=== PATIENT | male | born 1965 | race Caucasian/White ===

== ENCOUNTER 2019-12-10 13:57 | Inpatient (IN) | payer BC, SELFPAY ==
[2019-12-10] VITALS (12 sets, daily range): BP systolic 96–141; BP diastolic 61–88; PULSE 20–127; RESP 14–118; TEMP 36.5–39.6; O2SAT 93–97; BMI 36.0
--- NOTE | 2019-12-10 14:26 | XRR_ITS ---
PROCEDURE INFORMATION: Exam: XR Chest, 1 View Exam date and time: 12/10/2019 2:28 PM Age: 54 years old Clinical indication: Dyspnea; Additional info: AMS TECHNIQUE: Imaging protocol: XR of the chest Views: 1 view. COMPARISON: CR Chest 1 [place] [id number] 04/10/2014 9:56 AM FINDINGS: Lungs: Unremarkable. No consolidation. Pleural space: Unremarkable. No pleural effusion. No pneumothorax. Heart/Mediastinum: Unremarkable. No cardiomegaly. Bones/joints: No acute abnormality. There is some increased density and mild deformity of the anterior aspect of the left 5th through 7th ribs compatible with probable old rib fractures. XR/XR chest 1V portable [id number] IMPRESSION: No acute findings.
--- NOTE | 2019-12-10 14:27 | ECG_ITS ---
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 Measurements Intervals Gideon Rate: 126 P: 65 MS: 150 QRS: 86 QRSD: 102 T: 70 QT: 312 QTc: 453 Interpretive Statements SINUS TACHYCARDIA ABNORMAL RHYTHM ECG Compared to ECG 04/10/2014 09:38:32 T-wave abnormality no longer present Electronically Signed On 12-10-2019 16:21:45 CDT by Delmis Fairchild M.D. [id number]
--- NOTE | 2019-12-10 14:40 | CTR_ITS ---
PROCEDURE INFORMATION: Exam: CT Head Without Contrast Exam date and time: 12/10/2019 3:30 PM Age: 54 years old Clinical indication: Altered mental status/memory loss; Additional info: AMS, fever TECHNIQUE: Imaging protocol: Computed tomography of the head without contrast. Radiation optimization: All CT scans at this facility use at least one of these dose optimization techniques: automated exposure control; mA and/or kV adjustment per patient size (includes targeted exams where dose is matched to clinical indication); or iterative reconstruction. COMPARISON: CT head wo con* [id number] 04/10/2014 10:12 AM RADIATION DOSE METRICS: Total DLP (mGy-cm): 1632.97 FINDINGS: Brain: Normal. No hemorrhage. Unremarkable white matter. No mass effect. Ventricles: Normal. No ventriculomegaly. Bones/joints: Unremarkable. No acute fracture. Sinuses: Visualized sinuses are unremarkable. No fluid levels. Mastoid air cells: Visualized mastoid air cells are well aerated. Soft tissues: Unremarkable. CT/CT head wo con* [id number] IMPRESSION: No acute intracranial abnormality. Radiation Dose CTDIVOL = (mGy): DLP = 1632.97 (mGy-cm)
[2019-12-10 14:57] LABS: Basophils # 0.1 10^3/uL (0.0-0.1); Basophils % 0.4 %; Eosinophils # 0.1 10^3/uL (0.0-0.8); Eosinophils % 0.5 %; Hematocrit 45.7 % (42.0-52.0); Hemoglobin 15.6 g/dL (11.7-16.6); Lymphocytes % 6.8 %; Mean Corpuscular HGB Conc 34.1 g/dL (30.0-36.0); Mean Corpuscular Hemoglobin 30.9 pg (28.0-34.0); Mean Corpuscular Volume 90.5 fL (80-94); Mean Platelet Volume 11.8 fL (7.4-10.4); Monocytes # 1.2 10^3/uL (0.2-0.9); Monocytes % 8.1 %; Neutrophils # 12.59 10^3/uL (1.8-7.7); Neutrophils % 83.3 %; Nucleated Red Blood Cells % 0 %; Platelet Count 161 10^3/cmm (130-400); Red Blood Count 5.05 10^6/uL (4.1-5.3); Red Cell Distribution Width 11.7 % (12.1-15.1); White Blood Count 15.1 10^3/uL (4.0-10.0)
[2019-12-10 15:00] LABS: INR 0.91 (0.8-1.2)
[2019-12-10 15:01] LABS: Fibrinogen 439 mg/dL (174-498)
[2019-12-10 15:04] LABS: D Dimer 0.43 ug/mIFEU (0-0.59)
[2019-12-10] MEDS: lactated ringers 1,000 ML 150 ML IV ×2 (15:09→22:56)
[2019-12-10 15:10] LABS: Lactic Sepsis W/Reflex 2.6 mmol/L (0.5-2.2)
[2019-12-10 15:14] LABS: Troponin(5th) Baseline 16 ng/L (0-15)
--- NOTE | 2019-12-10 15:20 | W.ED.WEAKNES ---
HPI - Weakness General: Chief complaint: Weakness Stated complaint: MUSCLE, WEAKNESS, Time Seen by Provider: 12/10/19 14:26 History of Present Illness: HPI Narrative: This patient is a 54-year-old male presenting today with not feeling well, confusion. He is generally very active and fairly healthy person and was out riding his motorcycle today. He left home and was riding for a short time when he started feeling disoriented and having trouble holding onto the motorcycle. He had gotten to [place] and decided to turn around and come back to [place]. He is describing chills and in spite of it being warm out had to bundle up. He denies cough or shortness of breath. He denies nausea, vomiting, diarrhea. His friend who brought him in and says that he was very confused and seemed almost to be hallucinating. The patient wanted to go home and go to bed but his friend thought he needed to come in and get checked because he was acting so strangely. The patient does have a history of diabetes and neuropathy. He has chronic pain. He has not had any recent changes in any of his medications. He was in his normal state of health this morning when they left to go on the motorcycle ride. He did complain of some joint aching but said he worked hard yesterday and thought that might be why. On arrival he is tachycardic with a low-grade temp of 100.7. Sats are 95% on room air. He has no known exposure to COVID. Associated symptoms: Reports confusion; Denies chest pain, chills, easy bruising, fever(s), headache(s), nausea or vomiting Review of Systems General: Reports: 10 or more systems reviewed and unremarkable except in HPI and below Const: Denies: fever(s), chills, fatigue or malaise Eyes: Denies: change in vision ENMT: Denies: odynophagia Card: Denies: chest pain or swelling of feet/ankles Resp: Denies: dyspnea, productive cough or non-productive cough GI: Denies: abdominal pain, nausea or vomiting : Denies: flank pain Musc: Reports: joint pain; Denies: neck pain or back pain Skin/Breast: Denies: rash Neuro: Reports: weakness in extremities, lack of coordination, difficulty walking and confusion; Denies: headache(s) or numbness in extremities César/Lymph: Denies: easy bruising or easy bleeding PFS ED PFSH: Medical History (Updated 12/10/19 @ 22:32 by Sapphire Correa MD) Allergic rhinitis Chronic pain Chronic sinusitis Diabetes Dyslipidemia HTN (hypertension) Morbid obesity Neuropathy Obstructive sleep apnea Restless leg syndrome TIA (transient ischemic attack) Social History (Updated 12/10/19 @ 21:05 by Sapphire Correa MD) Smoking and tobacco status: former smoker Quit status (tobacco): has quit using tobacco Year quit tobacco: 2018 Alcohol intake: former Year of sobriety/quit date alcohol: 2014 Substance/Drug Use: never Lives independently: Yes Current occupational status: employed Physical Exam Const: COMMON NORMALS: no acute distress, no limitations and alert GENERAL APPEARANCE: cooperative HENMT: HEAD & SCALP: normal to inspection FACE & SINUS: normal facial exam Eye: GENERAL EYE: appearance normal, both eyes and all related structures Neck/C-Spine: COMMON NORMALS: supple, no meningeal signs and no JVD Chest: COMMONS NORMALS: normal inspection of the chest Resp: COMMON NORMALS: normal respiratory effort, No use of accessory muscles and clear to auscultation bilaterally AUSCULTATION: clear to auscultation bilaterally Cardio: COMMON NORMALS: no JVD, regular rate, regular rhythm and No murmurs present (Cardio) RATE: regular rate RHYTHM: regular rhythm GI: COMMON NORMALS: Normal to inspection, nondistended, normoactive bowel sounds present, Soft to palpation and non-tender INSPECTION: Yes normal to inspection AUSCULTATION: Yes normoactive bowel sounds PALPATION: Yes Soft to palpation Back/Pelvis: COMMON NORMALS: thoracic and lumbar spine normal to inspection Extremity: COMMON NORMALS: normal to inspection Neuro: COMMON NORMALS: moves all extremities, no focal motor deficits and no sensory deficits noted SENSORIUM/ORIENTATION: Yes alert MENINGEAL SIGNS: Yes no meningeal signs Psych: COMMON NORMALS: mental status grossly normal and cooperative Skin: COMMON NORMALS: no rashes or lesions noted and turgor normal GENERAL SKIN EXAM: no rashes or lesions noted and turgor normal Procedures Lumbar Puncture Time Out Performed: Yes Patient Position: upright Skin Prep: Povidone-Iodine 1% Local Anesthetic: lidocaine 1% Spinal Needle Gauge: 20G Interspace Used: L3-L4 Fluid Initially Obtained: other (I was unable to get fluid) Complications: Need to have other Practitioner Attempt Course ED course: This patient presented tachycardic and febrile. He was altered and confused initially but his mental status did improve throughout his stay. His oxygen was okay. He has not had cough or any type of COVID symptoms. The onset of this was fairly acute. He has had no sick contacts that he knows of. His presentation is concerning for meningitis or encephalitis. For this reason an LP was done. I was not able to do it in the department and it was done under fluoroscopy by Dr. Moe. The fluid came back with a cell count of only 3 white cells which were 100% mono sites. Protein and glucose were elevated. Gram stain only showed a few white cells. Covered him with 2 g Rocephin, vancomycin, acyclovir, fluconazole. He will be admitted to the hospitalist for further management and we will continue to treat presumptively as meningitis or encephalitis. COVID rapid test was negative. Vital Signs: Vital signs: Vital Signs Temperature 99.1 F 12/10/19 22:08 Pulse Rate 106 H 12/10/19 22:07 Respiratory Rate 16 12/10/19 22:07 Blood Pressure 97/68 12/10/19 22:07 Pulse Oximetry 94 12/10/19 22:07 MDM - Weakness Lab Data: Labs: Lab Results 12/10/19 12/10/19 12/10/19 Range/Units 14:41 14:41 14:41 WBC 15.1 H (4.0-10.0) 10^3/ uL RBC 5.05 (4.1-5.3) 10^6/u L Hgb 15.6 (11.7-16.6) g/dL Hct 45.7 (42.0-52.0) % MCV 90.5 (80-94) fL MCH 30.9 (28.0-34.0) pg MCHC 34.1 (30.0-36.0) g/dL RDW 11.7 L (12.1-15.1) % Plt Count 161 (130-400) 10^3/c mm MPV 11.8 H (7.4-10.4) fL Neut % (Auto) 83.3 % Lymph % (Auto) 6.8 % [place] % (Auto) 8.1 % Eos % (Auto) 0.5 % Baso % (Auto) 0.4 % Neut # (Auto) 12.59 H (1.8-7.7) 10^3/u L Lymph # (Auto) 1.0 (0.8-4.8) 10^3/u L [place] # (Auto) 1.2 H (0.2-0.9) 10^3/u L Eos # (Auto) 0.1 (0.0-0.8) 10^3/u L Baso # (Auto) 0.1 (0.0-0.1) 10^3/u L Nucleated RBC % (a uto) 0 % Nucleated RBCs # 0.0 /100WBC PT (12.1-14.9) SECO NDS INR (0.8-1.2) Fibrinogen (174-498) mg/dL D-Dimer (0-0.59) ug/mIFE U Sodium 130 L (136-145) mmol/L Potassium 4.0 (3.5-5.1) mmol/L Chloride 92 L (98-107) mmol/L Carbon Dioxide 24 (22-29) mmol/L Anion Gap 18.0 (5-19) BUN 19 (6-20) mg/dL Creatinine 1.2 (0.7-1.2) mg/dL GFR Calculation 63.3 L (90-130) mL/min Glucose 236 H (65-115) mg/dL Calculated Osmolal ity 274 L (285-295) mOsm/k g Lactic Acid 2.6 H (0.5-2.2) mmol/L Lactic Acid (Sepsi s) (0.5-2.2) mmol/L Calcium 9.0 (8.5-10.5) mg/dL Ferritin 264 (30-400) ng/mL Total Bilirubin 0.6 (0.15-1.2) mg/dL AST 31 (0-40) U/L ALT 44 H (0-41) U/L Alkaline Phosphata se 87 (40-130) IU/L Creatine Kinase 238 (39-308) U/L Troponin T Baselin e (0-15) ng/L Troponin T 120 Min [place] (0-15) ng/L Delta Troponin T (0-10) ABS# C-Reactive Protein 29.5 H (0.0-4.9) mg/L NT-Pro-B Natriuret Pep 64 (0-125) pg/mL Total Protein 7.2 (6.6-8.7) g/dL Albumin 4.5 (3.5-5.2) g/dL Globulin 2.7 (1.3-4.6) g/dL Procalcitonin 1.29 H (0-0.5) ng/mL CSF Appearance (CLEAR) CSF Color (COLORLESS) CSF WBC (0-5) /uL CSF RBC (0-0) 10^3/uL CSF Mononuclear # Auto (50-90) 10^3/uL CSF Mononuclear WB Cs % (50-90) % CSF Polynuclear WB Cs # (0-10) 10^3/uL CSF Polynuclear WB Cs % (0-10) % CSF Diff Comment CSF Glucose (40-70) mg/dL CSF Total Protein (15-45) mg/dL Urine Opiates Scre en (Negative) ng/mL Ur Barbiturates Sc reen (Negative) ng/mL Ur Phencyclidine S crn (Negative) ng/mL Ur Amphetamines Sc reen (Negative) ng/mL U Benzodiazepines Scrn (Negative) ng/mL Urine Cocaine Scre en (Negative) ng/mL U Marijuana (THC) Screen (Negative) ng/mL Ethyl Alcohol < 10 (0-10) mg/dL HIV 1&2 Ab & HIV 1 Ag (Non-Reactiv) HIV 1&2 Antibody (Non-Reactiv) Influenza Type A A g (Negative) Influenza Type B A g (Negative) SARS-CoV-2 Ag (Rap id) (Negative) 12/10/19 12/10/19 12/10/19 Range/Units 14:41 14:41 14:41 WBC (4.0-10.0) 10^3/ uL RBC (4.1-5.3) 10^6/u L Hgb (11.7-16.6) g/dL Hct (42.0-52.0) % MCV (80-94) fL MCH (28.0-34.0) pg MCHC (30.0-36.0) g/dL RDW (12.1-15.1) % Plt Count (130-400) 10^3/c mm MPV (7.4-10.4) fL Neut % (Auto) % Lymph % (Auto) % [place] % (Auto) % Eos % (Auto) % Baso % (Auto) % Neut # (Auto) (1.8-7.7) 10^3/u L Lymph # (Auto) (0.8-4.8) 10^3/u L [place] # (Auto) (0.2-0.9) 10^3/u L Eos # (Auto) (0.0-0.8) 10^3/u L Baso # (Auto) (0.0-0.1) 10^3/u L Nucleated RBC % (a uto) % Nucleated RBCs # /100WBC PT 12.50 (12.1-14.9) SECO NDS INR 0.91 (0.8-1.2) Fibrinogen 439 (174-498) mg/dL D-Dimer 0.43 (0-0.59) ug/mIFE U Sodium (136-145) mmol/L Potassium (3.5-5.1) mmol/L Chloride (98-107) mmol/L Carbon Dioxide (22-29) mmol/L Anion Gap (5-19) BUN (6-20) mg/dL Creatinine (0.7-1.2) mg/dL GFR Calculation (90-130) mL/min Glucose (65-115) mg/dL Calculated Osmolal ity (285-295) mOsm/k g Lactic Acid (0.5-2.2) mmol/L Lactic Acid (Sepsi s) (0.5-2.2) mmol/L Calcium (8.5-10.5) mg/dL Ferritin (30-400) ng/mL Total Bilirubin (0.15-1.2) mg/dL AST (0-40) U/L ALT (0-41) U/L Alkaline Phosphata se (40-130) IU/L Creatine Kinase (39-308) U/L Troponin T Baselin e 16 H (0-15) ng/L Troponin T 120 Min [place] (0-15) ng/L Delta Troponin T (0-10) ABS# C-Reactive Protein (0.0-4.9) mg/L NT-Pro-B Natriuret Pep (0-125) pg/mL Total Protein (6.6-8.7) g/dL Albumin (3.5-5.2) g/dL Globulin (1.3-4.6) g/dL Procalcitonin (0-0.5) ng/mL CSF Appearance (CLEAR) CSF Color (COLORLESS) CSF WBC (0-5) /uL CSF RBC (0-0) 10^3/uL CSF Mononuclear # Auto (50-90) 10^3/uL CSF Mononuclear WB Cs % (50-90) % CSF Polynuclear WB Cs # (0-10) 10^3/uL CSF Polynuclear WB Cs % (0-10) % CSF Diff Comment CSF Glucose (40-70) mg/dL CSF Total Protein (15-45) mg/dL Urine Opiates Scre en (Negative) ng/mL Ur Barbiturates Sc reen (Negative) ng/mL Ur Phencyclidine S crn (Negative) ng/mL Ur Amphetamines Sc reen (Negative) ng/mL U Benzodiazepines Scrn (Negative) ng/mL Urine Cocaine Scre en (Negative) ng/mL U Marijuana (THC) Screen (Negative) ng/mL Ethyl Alcohol (0-10) mg/dL HIV 1&2 Ab & HIV 1 Ag Non-reactive (Non-Reactiv) HIV 1&2 Antibody Non-reactive (Non-Reactiv) Influenza Type A A g (Negative) Influenza Type B A g (Negative) SARS-CoV-2 Ag (Rap id) (Negative) 12/10/19 12/10/19 12/10/19 Range/Units 15:01 15:01 16:05 WBC (4.0-10.0) 10^3/ uL RBC (4.1-5.3) 10^6/u L Hgb (11.7-16.6) g/dL Hct (42.0-52.0) % MCV (80-94) fL MCH (28.0-34.0) pg MCHC (30.0-36.0) g/dL RDW (12.1-15.1) % Plt Count (130-400) 10^3/c mm MPV (7.4-10.4) fL Neut % (Auto) % Lymph % (Auto) % [place] % (Auto) % Eos % (Auto) % Baso % (Auto) % Neut # (Auto) (1.8-7.7) 10^3/u L Lymph # (Auto) (0.8-4.8) 10^3/u L [place] # (Auto) (0.2-0.9) 10^3/u L Eos # (Auto) (0.0-0.8) 10^3/u L Baso # (Auto) (0.0-0.1) 10^3/u L Nucleated RBC % (a uto) % Nucleated RBCs # /100WBC PT (12.1-14.9) SECO NDS INR (0.8-1.2) Fibrinogen (174-498) mg/dL D-Dimer (0-0.59) ug/mIFE U Sodium (136-145) mmol/L Potassium (3.5-5.1) mmol/L Chloride (98-107) mmol/L Carbon Dioxide (22-29) mmol/L Anion Gap (5-19) BUN (6-20) mg/dL Creatinine (0.7-1.2) mg/dL GFR Calculation (90-130) mL/min Glucose (65-115) mg/dL Calculated Osmolal ity (285-295) mOsm/k g Lactic Acid (0.5-2.2) mmol/L Lactic Acid (Sepsi s) (0.5-2.2) mmol/L Calcium (8.5-10.5) mg/dL Ferritin (30-400) ng/mL Total Bilirubin (0.15-1.2) mg/dL AST (0-40) U/L ALT (0-41) U/L Alkaline Phosphata se (40-130) IU/L Creatine Kinase (39-308) U/L Troponin T Baselin e (0-15) ng/L Troponin T 120 Min [place] (0-15) ng/L Delta Troponin T (0-10) ABS# C-Reactive Protein (0.0-4.9) mg/L NT-Pro-B Natriuret Pep (0-125) pg/mL Total Protein (6.6-8.7) g/dL Albumin (3.5-5.2) g/dL Globulin (1.3-4.6) g/dL Procalcitonin (0-0.5) ng/mL CSF Appearance (CLEAR) CSF Color (COLORLESS) CSF WBC (0-5) /uL CSF RBC (0-0) 10^3/uL CSF Mononuclear # Auto (50-90) 10^3/uL CSF Mononuclear WB Cs % (50-90) % CSF Polynuclear WB Cs # (0-10) 10^3/uL CSF Polynuclear WB Cs % (0-10) % CSF Diff Comment CSF Glucose (40-70) mg/dL CSF Total Protein (15-45) mg/dL Urine Opiates Scre en Positive H (Negative) ng/mL Ur Barbiturates Sc reen Negative (Negative) ng/mL Ur Phencyclidine S crn Negative (Negative) ng/mL Ur Amphetamines Sc reen Negative (Negative) ng/mL U Benzodiazepines Scrn Negative (Negative) ng/mL Urine Cocaine Scre en Negative (Negative) ng/mL U Marijuana (THC) Screen Negative (Negative) ng/mL Ethyl Alcohol (0-10) mg/dL HIV 1&2 Ab & HIV 1 Ag (Non-Reactiv) HIV 1&2 Antibody (Non-Reactiv) Influenza Type A A g Negative (Negative) Influenza Type B A g Negative (Negative) SARS-CoV-2 Ag (Rap id) Negative (Negative) 12/10/19 12/10/19 12/10/19 Range/Units 16:50 16:50 17:22 WBC (4.0-10.0) 10^3/ uL RBC (4.1-5.3) 10^6/u L Hgb (11.7-16.6) g/dL Hct (42.0-52.0) % MCV (80-94) fL MCH (28.0-34.0) pg MCHC (30.0-36.0) g/dL RDW (12.1-15.1) % Plt Count (130-400) 10^3/c mm MPV (7.4-10.4) fL Neut % (Auto) % Lymph % (Auto) % [place] % (Auto) % Eos % (Auto) % Baso % (Auto) % Neut # (Auto) (1.8-7.7) 10^3/u L Lymph # (Auto) (0.8-4.8) 10^3/u L [place] # (Auto) (0.2-0.9) 10^3/u L Eos # (Auto) (0.0-0.8) 10^3/u L Baso # (Auto) (0.0-0.1) 10^3/u L Nucleated RBC % (a uto) % Nucleated RBCs # /100WBC PT (12.1-14.9) SECO NDS INR (0.8-1.2) Fibrinogen (174-498) mg/dL D-Dimer (0-0.59) ug/mIFE U Sodium (136-145) mmol/L Potassium (3.5-5.1) mmol/L Chloride (98-107) mmol/L Carbon Dioxide (22-29) mmol/L Anion Gap (5-19) BUN (6-20) mg/dL Creatinine (0.7-1.2) mg/dL GFR Calculation (90-130) mL/min Glucose (65-115) mg/dL Calculated Osmolal ity (285-295) mOsm/k g Lactic Acid (0.5-2.2) mmol/L Lactic Acid (Sepsi s) 2.6 H (0.5-2.2) mmol/L Calcium (8.5-10.5) mg/dL Ferritin (30-400) ng/mL Total Bilirubin (0.15-1.2) mg/dL AST (0-40) U/L ALT (0-41) U/L Alkaline Phosphata se (40-130) IU/L Creatine Kinase (39-308) U/L Troponin T Baselin e (0-15) ng/L Troponin T 120 Min [place] 12.46 (0-15) ng/L Delta Troponin T -3.54 L (0-10) ABS# C-Reactive Protein (0.0-4.9) mg/L NT-Pro-B Natriuret Pep (0-125) pg/mL Total Protein (6.6-8.7) g/dL Albumin (3.5-5.2) g/dL Globulin (1.3-4.6) g/dL Procalcitonin (0-0.5) ng/mL CSF Appearance Clear (CLEAR) CSF Color Colorless (COLORLESS) CSF WBC 3 (0-5) /uL CSF RBC 0 (0-0) 10^3/uL CSF Mononuclear # Auto 0.003 L (50-90) 10^3/uL CSF Mononuclear WB Cs % 100 H (50-90) % CSF Polynuclear WB Cs # 0.000 (0-10) 10^3/uL CSF Polynuclear WB Cs % 0 (0-10) % CSF Diff Comment Yes CSF Glucose (40-70) mg/dL CSF Total Protein (15-45) mg/dL Urine Opiates Scre en (Negative) ng/mL Ur Barbiturates Sc reen (Negative) ng/mL Ur Phencyclidine S crn (Negative) ng/mL Ur Amphetamines Sc reen (Negative) ng/mL U Benzodiazepines Scrn (Negative) ng/mL Urine Cocaine Scre en (Negative) ng/mL U Marijuana (THC) Screen (Negative) ng/mL Ethyl Alcohol (0-10) mg/dL HIV 1&2 Ab & HIV 1 Ag (Non-Reactiv) HIV 1&2 Antibody (Non-Reactiv) Influenza Type A A g (Negative) Influenza Type B A g (Negative) SARS-CoV-2 Ag (Rap id) (Negative) 12/10/19 Range/Units 17:22 WBC (4.0-10.0) 10^3/ uL RBC (4.1-5.3) 10^6/u L Hgb (11.7-16.6) g/dL Hct (42.0-52.0) % MCV (80-94) fL MCH (28.0-34.0) pg MCHC (30.0-36.0) g/dL RDW (12.1-15.1) % Plt Count (130-400) 10^3/c mm MPV (7.4-10.4) fL Neut % (Auto) % Lymph % (Auto) % [place] % (Auto) % Eos % (Auto) % Baso % (Auto) % Neut # (Auto) (1.8-7.7) 10^3/u L Lymph # (Auto) (0.8-4.8) 10^3/u L [place] # (Auto) (0.2-0.9) 10^3/u L Eos # (Auto) (0.0-0.8) 10^3/u L Baso # (Auto) (0.0-0.1) 10^3/u L Nucleated RBC % (a uto) % Nucleated RBCs # /100WBC PT (12.1-14.9) SECO NDS INR (0.8-1.2) Fibrinogen (174-498) mg/dL D-Dimer (0-0.59) ug/mIFE U Sodium (136-145) mmol/L Potassium (3.5-5.1) mmol/L Chloride (98-107) mmol/L Carbon Dioxide (22-29) mmol/L Anion Gap (5-19) BUN (6-20) mg/dL Creatinine (0.7-1.2) mg/dL GFR Calculation (90-130) mL/min Glucose (65-115) mg/dL Calculated Osmolal ity (285-295) mOsm/k g Lactic Acid (0.5-2.2) mmol/L Lactic Acid (Sepsi s) (0.5-2.2) mmol/L Calcium (8.5-10.5) mg/dL Ferritin (30-400) ng/mL Total Bilirubin (0.15-1.2) mg/dL AST (0-40) U/L ALT (0-41) U/L Alkaline Phosphata se (40-130) IU/L Creatine Kinase (39-308) U/L Troponin T Baselin e (0-15) ng/L Troponin T 120 Min [place] (0-15) ng/L Delta Troponin T (0-10) ABS# C-Reactive Protein (0.0-4.9) mg/L NT-Pro-B Natriuret Pep (0-125) pg/mL Total Protein (6.6-8.7) g/dL Albumin (3.5-5.2) g/dL Globulin (1.3-4.6) g/dL Procalcitonin (0-0.5) ng/mL CSF Appearance (CLEAR) CSF Color (COLORLESS) CSF WBC (0-5) /uL CSF RBC (0-0) 10^3/uL CSF Mononuclear # Auto (50-90) 10^3/uL CSF Mononuclear WB Cs % (50-90) % CSF Polynuclear WB Cs # (0-10) 10^3/uL CSF Polynuclear WB Cs % (0-10) % CSF Diff Comment CSF Glucose 122 H (40-70) mg/dL CSF Total Protein 71 H (15-45) mg/dL Urine Opiates Scre en (Negative) ng/mL Ur Barbiturates Sc reen (Negative) ng/mL Ur Phencyclidine S crn (Negative) ng/mL Ur Amphetamines Sc reen (Negative) ng/mL U Benzodiazepines Scrn (Negative) ng/mL Urine Cocaine Scre en (Negative) ng/mL U Marijuana (THC) Screen (Negative) ng/mL Ethyl Alcohol (0-10) mg/dL HIV 1&2 Ab & HIV 1 Ag (Non-Reactiv) HIV 1&2 Antibody (Non-Reactiv) Influenza Type A A g (Negative) Influenza Type B A g (Negative) SARS-CoV-2 Ag (Rap id) (Negative) Discharge Plan Discharge Patient Disposition: Admitted As Inpatient Admit Provider: Sapphire Correa Discharge Date/Time: 12/10/19 21:44 Coding Level of Care Code ED Business Instructor for Luis Fwd Exam Comprehensive
[2019-12-10 15:21] LABS: NT Pro B Type Natriuretic Pept 64 pg/mL (0-125); Procalcitonin 1.29 ng/mL (0-0.5)
[2019-12-10 15:29] LABS: SARS Covid-2 Antigen Negative (Negative)
[2019-12-10 15:32] LABS: Alanine Aminotransferase 44 U/L (0-41); Albumin Level 4.5 g/dL (3.5-5.2); Alkaline Phosphatase 87 IU/L (40-130); Aspartate Amino Transferase 31 U/L (0-40); Blood Urea Nitrogen 19 mg/dL (6-20); C Reactive Protein 29.5 mg/L (0.0-4.9); Carbon Dioxide 24 mmol/L (22-29); Chloride 92 mmol/L (98-107); Creatine Phosphokinase 238 U/L (39-308); Ferritin 264 ng/mL (30-400); Globulin 2.7 g/dL (1.3-4.6); Glomerular Filtration Rate 63.3 mL/min (90-130); Glucose 236 mg/dL (65-115); Osmolality Calculated 274 mOsm/kg (285-295); Sodium 130 mmol/L (136-145); Total Bilirubin 0.6 mg/dL (0.15-1.2); Total Protein 7.2 g/dL (6.6-8.7)
[2019-12-10 16:01] LABS: Influenza A by IFA Negative (Negative); Influenza B by IFA Negative (Negative)
[2019-12-10 16:04] LABS: Alcohol Level < 10 mg/dL (0-10)
[2019-12-10 16:25] LABS: Amphetamines Screen Urine Negative (Negative); Barbiturates Screen Urine Negative (Negative); Benzodiazepines Screen Urine Negative (Negative); Cocaine Screen Urine Negative (Negative); Opiate Screen Urine Positive (Negative); PCP Screen Urine Negative (Negative); THC Screen Urine Negative (Negative)
--- NOTE | 2019-12-10 16:27 | ECG_ITS ---
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 Measurements Intervals [place] Rate: 112 P: 61 OK: 157 QRS: 80 QRSD: 98 T: 76 QT: 328 QTc: 449 Interpretive Statements SINUS TACHYCARDIA ABNORMAL RHYTHM ECG Compared to ECG 12/10/2019 14:46:47 No significant changes Electronically Signed On 12-11-2019 15:18:01 CDT by Delmis Fairchild M.D. [email or web address]
[2019-12-10 16:34] LABS: Reflex Lactate Order REFLEX LACTIC ORDERD
--- NOTE | 2019-12-10 16:39 | FL_ITS ---
WS: [id number] LUMBAR PUNCTURE UNDER FLUOROSCOPY: OBTAIN CSF FOR ANALYSIS HISTORY: possible meningitis COMPARISON: None available. FLUOROSCOPY TIME: 0.5 minutes. Procedure, complications, and risk and benefits explained to the patient. Consent was obtained. Recen t laboratory work and medication are reviewed prior to procedure. Skin over the lumbar is cleansed with ChloraPrep and anesthetized with 1% buffered lidocaine. Access into the thecal sac is achieved. CSF is removed in a sterile manner and placed in the sterile tubes. Approximately 12 ml are removed without difficulty. CSF is clear. No complications are encountered. CSF this into the laboratory for analysis as requested. FL/FL guided lumbarpunc dx* [id number] IMPRESSION: Uncomplicated lumbar puncture for CSF.
[2019-12-10 17:12] LABS: Lactic Acid level (Lactate) 2.6 mmol/L (0.5-2.2)
[2019-12-10 17:13] LABS: Troponin 5 2HR 12.46 ng/L (0-15)
[2019-12-10 17:18] LABS: Troponin 5 2HR Delta -3.54 ABS# (0-10)
[2019-12-10] MEDS: cefTRIAXone 2,000 MG in sodium chloride 0.9% (plus) 50 ML 100 MG IV (17:48)
[2019-12-10] MEDS: lidocaine 1% INJ 20 mL INJECTION (17:54)
[2019-12-10 18:01] LABS: CSF Mononuclear # 0.003 10^3/uL (50-90); Mononuclear WBC CSF % 100 % (50-90); Polynuclear WBC CSF % 0 % (0-10); Red Blood Cell CSF 0 10^3/uL (0-0); White Blood Cell CSF 3 /uL (0-5)
[2019-12-10] MEDS: acetaminophen 500 mg Tablet 1000 MG PO (18:04)
[2019-12-10 18:22] LABS: Appearance CSF CLEAR (CLEAR); Color CSF COLORLESS (COLORLESS); Pathology Referral Yes
[2019-12-10 18:27] LABS: Glucose CSF 122 mg/dL (40-70); Total Protein CSF 71 mg/dL (15-45)
[2019-12-10] MEDS: acyclovir 1,000 MG in sodium chloride 0.9% (100 ml) 100 ML 120 MG IV (19:47)
[2019-12-10] MEDS: morphine 4 mg/mL SDV 1 mL IVP (20:15)
--- NOTE | 2019-12-10 20:27 | ECG_ITS ---
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 Measurements Intervals [place] Rate: 98 P: 28 NE: 119 QRS: 74 QRSD: 105 T: 96 QT: 378 QTc: 484 Interpretive Statements SINUS RHYTHM WITH SHORT NE INTERVAL NONSPECIFIC ST & T-WAVE ABNORMALITY Compared to ECG 12/10/2019 18:01:02 Short NE interval now present T-wave abnormality now present Sinus tachycardia no longer present Electronically Signed On 12-11-2019 15:18:23 CDT by Delmis Fairchild M.D. [id number]
[2019-12-10] MEDS: ketorolac 30 mg/mL INJ 15 MG IVP (20:39)
[2019-12-10] MEDS: fluconazole premix 200 MG/100 ML PREMIX 100 MG IV (20:40)
--- NOTE | 2019-12-10 20:41 | P.HP_ITS ---
Providers/Chief Complaint Admitting Physician: Sapphire Crorea MD Primary Care Provider: Amanda Baker NP Chief Complaint: MUSCLE, WEAKNESS, History of Present Illness Jacob Bañuelos is a 54 year old male with PMHx noted below presents for evaluation of ongoing generalized weakness, confusion since earlier today. He reports feeling well when he awakened this morning, had a good breakfast and had planned to go on a motorcycle ride with friends. On his way to meet his friends he started to feel unwell and had to make at least 2 stops to rest and to drink water as he felt quite thirsty. He reports seeing a great ape while he was riding on his motorcycle on his way home and upon returning home he laid down as he continued to feel unwell. His [id number] whom he had mentioned his malaise to encouraged him to come to the hospital for further evaluation. He has continued to feel weak, confused and is febrile with a temperature of 102.8. He appears flushed though is able to answer my questions appropriately during my assessment in the ER. He expresses great frustration at the situation as he is scheduled to begin a new job on Thursday and now thinks he may not be able to do this and is facing a significant amount of financial related stress. Work-up so far shows leukocytosis with neutrophilic predominance, white count of 15.1, normal hemoglobin at 15.6, hyponatremia with a sodium of 130, normal potassium, normal renal function, blood glucose of 236, normal coags including d-dimer, CPK of 238, procalcitonin of 1.29, lactic acid of 2.6, CRP of 29.5. Urine drug screen is positive for opiates though he is on chronic narcotics for chronic back pain. Alcohol screen is negative. CT scan of the head is unremarkable for any acute findings. He has had a lumbar puncture done, analysis is somewhat benign, culture is pending though gram stain is negative. He is tachycardic, low normal blood pressure, febrile with a temperature of 103.2F. He has receiv ed vancomycin, ceftriaxone, a dose of acyclovir. As we are unsure of what the patient has meningitis versus encephalitis will also add antifungal coverage. He has been screened for COVID-19 which is negative. He does have some neck pain but no stiffness or rigidity. Due to need for further work-up and further anti-infective treatment, he will require hospitalization. Review of Systems Narrative: -History taking limited as patient is quite frustrated and somewhat difficult to keep on topic Const: Reports: fever(s), chills, body aches, change in appetite (decreased appetite), fatigue and malaise Eyes: Denies: change in vision ENMT: Reports: dry mouth, post nasal drip and sinus pain Card: Denies: chest pain, swelling of feet/ankles or lightheadedness Resp: Reports: non-productive cough; Denies: dyspnea GI: Reports: constipation : Reports: oliguria Musc: Reports: other (shoulder and neck pain); Denies: back pain Skin/Breast: Denies: rash Neuro: Reports: weakness in extremities and confusion; Denies: numbness in extremities Medications/Allergies Home Medications Medication Instructions Recorded Confirmed Last Taken Type amlodipine 10 mg PO DAILY 12/10/19 12/10/19 12/10/19 History aspirin [Aspirin Low Dose] 81 mg PO DAILY 12/10/19 12/10/19 12/10/19 History atorvastatin 20 mg PO DAILY 12/10/19 12/10/19 12/10/19 History cyanocobalamin (vitamin B-12) 1 ml PO DAILY 12/10/19 12/10/19 Unknown History [Vitamin B-12] dapagliflozin [Farxiga] 5 mg PO DAILY 12/10/19 12/10/19 12/10/19 History dulaglutide [Trulicity] 1.5 mg SUBCUT Q7D 12/10/19 12/10/19 12/06/19 History fluticasone propionate See Rx Instructions .ROUTE .COMPLEX 12/10/19 12/10/19 12/10/19 History glipizide 10 mg PO BID 12/10/19 12/10/19 12/10/19 History hydrochlorothiazide 25 mg PO DAILY 12/10/19 12/10/19 12/10/19 History hydrocodone-acetaminophen 1 tab PO Q6H PRN 12/10/19 12/10/19 12/10/19 History lisinopril 40 mg PO DAILY 12/10/19 12/10/19 12/10/19 History meloxicam 15 mg PO DAILY 12/10/19 12/10/19 12/10/19 History metformin 1,000 mg PO BID 12/10/19 12/10/19 12/10/19 History metoprolol tartrate 25 mg PO BID 12/10/19 12/10/19 12/10/19 History montelukast 10 mg PO DAILY 12/10/19 12/10/19 12/10/19 History nortriptyline 50 mg PO BID 12/10/19 12/10/19 12/10/19 History pantoprazole 40 mg PO DAILY 12/10/19 12/10/19 12/10/19 History pioglitazone 15 mg PO DAILY 12/10/19 12/10/19 12/10/19 History pregabalin 200 mg PO TID 12/10/19 12/10/19 12/10/19 History ropinirole 0.5 mg PO BID 12/10/19 12/10/19 12/10/19 History trazodone 150 mg PO BEDTIME 12/10/19 12/10/19 12/09/19 History Allergies Allergy/AdvReac Type Severity Reaction Status Date / Time ampicillin Allergy ALGY-Wheezi Verified 12/10/19 22:13 ng Penicillins Allergy Unknown Verified 12/10/19 22:13 PFSH Acute PFSH: Medical History (Updated 12/11/19 @ 00:43 by Sapphire Correa MD) Allergic rhinitis Chronic pain Chronic sinusitis Diabetes Dyslipidemia HTN (hypertension) Morbid obesity Neuropathy Obstructive sleep apnea Restless leg syndrome TIA (transient ischemic attack) Social History (Updated 12/10/19 @ 21:05 by Sapphire Correa MD) Smoking and tobacco status: former smoker Quit status (tobacco): has quit using tobacco Year quit tobacco: 2018 Alcohol intake: former Year of sobriety/quit date alcohol: 2014 Substance/Drug Use: never Lives independently: Yes Current occupational status: employed Supplemental PFSH Information: -Unable to obtain surgical history, family history as patient was quite frustrated during history taking Vitals/I&O/Wt Last Vital Signs Temp 103.2 F H 12/10/19 20:19 Pulse 127 H 12/10/19 20:19 Resp 16 12/10/19 20:19 BP 100/73 12/10/19 20:19 Pulse Ox 96 12/10/19 20:19 12/10/19 12/10/19 12/10/19 06:59 14:59 22:59 Intake Total 1050 / 1050 Balance 1050 / 1050 Weight last 48 hrs Weight 134.263 kg Physical Exam Const: COMMON NORMALS: patient oriented x3 and alert ORIENTATION/CONS CIOUSNESS: Yes awake OTHER: -Patient is quite frustrated during my history taking -Somewhat ill-appearing and flushed -Burly, muscular build HENMT: COMMON NORMALS: normocephalic, atraumatic and hearing grossly normal bilaterally HEAD & SCALP: normocephalic and atraumatic FACE & SINUS: sinus tenderness frontal and maxillary MOUTH: moist mucous membranes abnormal Deta ils: parched TEETH & GINGIVA: Yes caries and Yes poor dentition Eye: COMMON NORMALS: Equal, round and reactive pupils present, EOMs intact bilaterally and conjunctivae normal CONJUNCTIVA: Yes conjunctivae normal PUPIL: Yes Equal, round and reactive pupils present Neck/C-Spine: COMMON NORMALS: full ROM GENERAL: Yes normal visual inspection and Yes trachea midline Resp: COMMON NORMALS: normal respiratory effort, No retractions, No use of accessory muscles and clear to auscultation bilaterally EFFORT & INSPECTION: Yes able to speak in complete sentences, Yes symmetric chest movement and No tachypneic AUSCULTATION: clear to auscultation bilaterally Cardio: COMMON NORMALS: regular rhythm, S1 normal heart sound present, S2 normal heart sound present and No murmurs present (Cardio) RATE: tachycardic RHYTHM: regular rhythm HEART SOUNDS: S1 normal heart sound present and S2 normal heart sound present GI: COMMON NORMALS: Normal to inspection, nondistended, normoactive bowel sounds present, Soft to palpation and non-tender INSPECTION: Yes central obesity PALPATION: Yes Soft to palpation Extremity: COMMON NORMALS: normal to inspection, full ROM, no clubbing, cyanosis or edema and no pedal edema Neuro: COMMON NORMALS: patient oriented x3, moves all extremities, no focal motor deficits and no sensory deficits noted SENSORIUM/ORIENTATION: Yes alert MENINGEAL SIGNS: No nuccal rigidity Psych: COMMON NORMALS: mental status grossly normal, Normal thought process present, cooperative, normal affect and speech normal SPEECH: Yes normal s peech THOUGHT PROCESS: Normal thought process present Skin: COMMON NORMALS: no rashes or lesions noted, no jaundice, no petechiae and no mottling GENERAL SKIN EXAM: no rashes or lesions noted Sepsis: Is patient septic: Yes Focused sepsis exam performed: Yes Date exam was performed: 12/10/19 Time exam was performed: 20:30 Data : 12/10/19 14:41 12/10/19 14:41 Micro: Microbiology 12/10/19 17:22 Gram Stain - Final Cerebrospinal Fluid 12/10/19 15:01 Blood Culture - Preliminary Blood SPECIMEN COLLECTED 12/10/19 14:41 Blood Culture - Preliminary Blood SPECIMEN COLLECTED A&P Assessment and plan (1) Acute encephalopathy: -With concern for possible meningitis versus encephalitis given altered mental status, high-grade temperatures, leukocytosis, lactic acidosis -Sudden onset, noted neck pain but no nuchal rigidity, sinus tenderness -Associated sepsis as evidenced by tachycardia, high-grade temperatures, leukocytosis -Status post lumbar puncture, CSF analysis noted, viral panel ordered, culture pending though gram stain negative, -HIV testing pending -tick panel pending -high grade temp (103.2 F), continue to monitor temp; antipyretics as needed -noted leukocytosis with neutrophilic predominance, procalcitonin elevation (1.21), CRP elevation (29.5); trend WBC -For now due to suspicion for possible meningitis versus encephalitis will cover with broad-spectrum IV antibiotics, antiviral and antifungal treatment -Neurochecks, seizure precautions, fall precautions, aspiration precautions -Ativan PRN -Monitor vital signs closely -Rapid COVID-19 testing negative -Isolation precautions for now -CT facial bones unremarkable Status: Acute (2) Sepsis: -as noted above Status: Acute Qualifiers: Sepsis type: sepsis due to unspecified organism Sepsis acute organ dysfunction status: with acute organ dysfunction Severe sepsis acute organ dysfunction type: encephalopathy Severe sepsis shock status: without septic shock Qualified Code(s): A41.9 - Sepsis, unspecified organism; R65.20 - Severe sepsis without septic shock; G93.40 - Encephalopathy, unspecified (3) Dehydration: -IVF hydration -Noted hyponatremia Status: Acute (4) Neuropathy: -is on pregabalin -likely secondary to DM Status: Chronic (5) Chronic pain: -On chronic narcotics Status: Chronic Qualifiers: Chronic pain type: other chronic pain Qualified Code(s): G89.29 - Other chronic pain (6) Diabetes: -check A1c -ISS, Accu-Cheks, hypoglycemia precautions. 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 Diabetes mellitus complication status: with neurologic complications Diabetes mellitus complication detail: with polyneuropathy Qualified Code(s): E11.42 - Type 2 diabetes mellitus with diabetic polyneuropathy (7) HTN (hypertension): -monitor vital signs -low normal BP so hold amlodipine and HCTZ, resume BB due to tachycardia Status: Chronic Qualifiers: Hypertension type: essential hypertension Qualified Code(s): I10 - Essential (primary) hypertension (8) Chronic sinusitis: -no acute infection, CT facial bones negative Status: Chronic Qualifiers: Sinusitis location: unspecified location Qualified Code(s): J32.9 - Chronic sinusitis, unspecified (9) Dyslipidemia: -resume statin Status: Chronic (10) TIA (transient ischemic attack): -prior hx of TIA -on ASA, statin Status: Chronic (11) Restless leg syndrome: -on ropinrole Status: Chronic (12) Obstructive sleep apnea: -He reports been unable to tolerate CPAP Status: Chronic (13) Morbid obesity: -BMI-36 kg/m2 Status: Chronic Additional A&P Information -GI ppx with PPI -DVT ppx with SCDs, lovenox -Dispo: home -Code status: FULL code Attestations Medical Necessity Statement*: Jacob Peña Rigorivera's hospital stay will require greater than 2 midnights for treatment of acute encephalopathy with concern for meningitis, encephalitis on broad-spectrum anti-infective agents Time Spent in Patient Care: Greater than 35 minutes (>than 50% of time spent in counselling and/or direct pt care on unit) . 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 Diabetes mellitus complication status: with neurologic complications Diabetes mellitus complication detail: with polyneuropathy HTN (hypertension) I10 Hypertension type: essential hypertension Chronic sinusitis J32.9 Sinusitis location: unspecified location Dyslipidemia E78.5 TIA (transient ischemic attack) G45.9 Restless leg syndrome G25.81 Obstructive sleep apnea G47.33 Morbid obesity E66.01 Sepsis Event Note Evaluation Current stage of sepsis: sepsis Possible source: meningitis Focused Exam Vital Signs Temp Pulse Pulse Resp BP BP Pulse Ox 12/10/19 20:19 103.2 F H 127 H 16 100/73 96 12/10/19 19:30 115 H 14 126/78 97 12/10/19 17:54 102.8 F H 117 H 14 96/68 97 12/10/19 16:48 124 H 17 121/78 94 12/10/19 15:57 125 H 17 141/88 93 12/10/19 14:34 100.7 F H 127 H 18 129/88 96 12/10/19 14:15 97.8 F 118 H 18 127/69 95 Respiratory exam: Present CTAB Cardiovascular exam: Present S1, S2 and tachycardia Peripheral pulse strength: 3+ Normal Peripheral pulse location: Pedal Skin exam: normal turgor Date exam was performed: 12/11/19 Time exam was performed: 00:35 Bedside Monitoring Fluid responsiveness: Fluid Responsive Date bedside monitoring was performed: 12/11/19 Time bedside monitoring was performed: 00:35
--- NOTE | 2019-12-10 20:45 | CTR_ITS ---
PROCEDURE INFORMATION: Exam: CT Maxillofacial Without Contrast Exam date and time: 12/10/2019 9:02 PM Age: 54 years old Clinical indication: Face pain; Patient HX: C/O pressure behind eyes w fever and drainage; Additional info: Sinus tenderness, drainage, fever TECHNIQUE: Imaging protocol: Computed tomography images of the face without contrast. Radiation optimization: All CT scans at this facility use at least one of these dose optimization techniques: automated exposure control; mA and/or kV adjustment per patient size (includes targeted exams where dose is matched to clinical indication); or iterative reconstruction. COMPARISON: No relevant prior studies available. RADIATION DOSE METRICS: Total DLP (mGy-cm): 795.14 FINDINGS: Orbits: Orbits are normal. Globes are unremarkable. Bones/joints: No acute fracture. Sinuses: Normal. No air-fluid levels. Soft tissues: Unremarkable. CT/CT facial bones wo con* [id number] IMPRESSION: No acute findings. Radiation Dose CTDIVOL = (mGy): DLP = 795.14 (mGy-cm)
[2019-12-10 21:35] LABS: HIV 1 & 2 Antibody Non-Reactive (Non-Reactiv); HIV 1 & 2 Antigen Non-Reactive (Non-Reactiv)
[2019-12-10 22:00] LABS: Troponin 5 6HR 17.01 ng/L (0-15); Troponin 5 6HR Delta 1.01 ng/L (0-12)
--- NOTE | 2019-12-10 22:19 | PC.NURSE ---
Patient answers correctly to person, place, time, and situation, however patient states things like I saw apes in the road and my and son didn't believe me and thought I was crazy.
[2019-12-10 22:43] LABS: Glucose Point of Care 306 mg/dL (70-110)
--- NOTE | 2019-12-10 22:48 | PC.PHAR ---
Pharmacokinetic dosing service Date: 12/10/19 Time: 2247 Objective: Patient: Jacob Bañuelos Floor: 102-1 Age: 54 yo Serum creatinine: 1.2 mg/dL Height: 76.0 Inches Weight (kg): 134.63 Diagnosis: Relevant medical/social history: Cultures and sensitivities: Other labs: Assessment: IBW (kg): 86.80 Dosing wt(kg): 134.63 Estimated Creatinine clearance (ml/min): 87.4 CRCL method: Cockcroft and Gault using ibw(default). Drug selected: Vancomycin Loading dose (mg): 0 Vd (liters): 121.2 (factor used: 0.9 L/kg) Zen (hr-1): 0.077 Half life (hrs): 9.00 Recommended dose: 2000 mg Interval: 12 hrs Infusion time (hrs): 1.5 Predicted peak (mcg/mL): 25.8 Predicted trough (mcg/mL): 11.49 Total body weight is being used for vancomycin dosing. Renal function is stable [ ] /unstable [ ] Recommendations: Give Vancomycin 2000 mg q 12 hrs with an expected Cpeak of 25.8 mcg/ml and an expected Ctrough of 11.49 mcg/ml Renal dosing of other antibiotics (review renal dosing of other medications and list guidelines here): Thank you for the consult, will continue to follow. Signature: [facility]
--- NOTE | 2019-12-10 22:49 | PC.NURSE ---
Addendum entered by Marylin Baker RN 12/11/19 01:53: Dr. Correa notified of this. Original Note: Dr. Correa notified of patient stating that he has not had any of his nighttime medications and is specifically asking for trazodone, requip, and lyrica. Doctor states she is holding them for now. Patient has been oriented to his room and has call light within reach and was educated not to get up without assistance.
[2019-12-10] MEDS: HYDROcodone-acetaminophen 5-325 mg Tablet 1 TAB PO (22:56)
[2019-12-11] MEDS: enoxaparin 40 mg/0.4 mL Syringe SUBCUT (02:38)
--- NOTE | 2019-12-11 03:01 | PC.NURSE ---
Patient is currently resting in bed with eyes closed. Will monitor.
[2019-12-11 03:30] VITALS: BP 134/68; PULSE 94; RESP 18; TEMP 36.6; O2SAT 92
[2019-12-11] MEDS: acyclovir 500 MG in sodium chloride 0.9% (100 ml) 100 ML 110 MG IV ×2 (04:31→12:10)
[2019-12-11] MEDS: lactated ringers 1,000 ML 150 ML IV (05:47)
[2019-12-11 06:17] LABS: Basophils % 0.3 %; Eosinophils # 0.1 10^3/uL (0.0-0.8); Eosinophils % 0.8 %; Hematocrit 39.7 % (42.0-52.0); Hemoglobin 13.6 g/dL (11.7-16.6); Lymphocytes # 1.9 10^3/uL (0.8-4.8); Lymphocytes % 15.9 %; Mean Corpuscular HGB Conc 34.3 g/dL (30.0-36.0); Mean Corpuscular Hemoglobin 31.9 pg (28.0-34.0); Monocytes # 0.8 10^3/uL (0.2-0.9); Monocytes % 6.9 %; Neutrophils % 75.5 %; Nucleated Red Blood Cells % 0 %; Platelet Count 144 10^3/cmm (130-400); Red Blood Count 4.27 10^6/uL (4.1-5.3); Red Cell Distribution Width 12.2 % (12.1-15.1); White Blood Count 11.8 10^3/uL (4.0-10.0)
[2019-12-11 06:31] LABS: Glucose Point of Care 260 mg/dL (70-110)
[2019-12-11 07:01] LABS: Alanine Aminotransferase 28 U/L (0-41); Albumin Level 3.5 g/dL (3.5-5.2); Alkaline Phosphatase 84 IU/L (40-130); Anion Gap 16.3 (5-19); Aspartate Amino Transferase 23 U/L (0-40); Blood Urea Nitrogen 21 mg/dL (6-20); Calcium 8.7 mg/dL (8.5-10.5); Carbon Dioxide 24 mmol/L (22-29); Chloride 101 mmol/L (98-107); Globulin 2.8 g/dL (1.3-4.6); Glomerular Filtration Rate 63.3 mL/min (90-130); Glucose 244 mg/dL (65-115); Magnesium 1.8 mg/dL (1.7-2.3); Osmolality Calculated 291 mOsm/kg (285-295); Potassium 3.3 mmol/L (3.5-5.1); Sodium 138 mmol/L (136-145); Thyroid Stimulating Hormone 1.32 uIU/mL (0.27-4.20); Total Bilirubin 0.5 mg/dL (0.15-1.2); Total Protein 6.3 g/dL (6.6-8.7)
[2019-12-11 07:15] VITALS: BP 137/86; PULSE 101; RESP 13; TEMP 36.8; O2SAT 97
[2019-12-11] MEDS: doxycycline 100 mg Tablet PO (08:29)
[2019-12-11] MEDS: metoprolol tartrate 25 mg Tablet PO (08:30)
[2019-12-11] MEDS: pantoprazole DR 40 mg Tablet PO (08:30)
[2019-12-11 08:33] LABS: Estmated Average Glucose 217; Hemoglobin A1C 9.2 % (4.0-6.0)
--- NOTE | 2019-12-11 08:55 | CTR_ITS ---
PROCEDURE INFORMATION: Exam: CT Cervical Spine With Contrast Exam date and time: 12/11/2019 12:33 PM Age: 54 years old Clinical indication: Patient HX: Sepsis, neck pain TECHNIQUE: Imaging protocol: Computed tomography images of the cervical spine with intravenous contrast. Radiation optimization: All CT scans at this facility use at least one of these dose optimization techniques: automated exposure control; mA and/or kV adjustment per patient size (includes targeted exams where dose is matched to clinical indication); or iterative reconstruction. Contrast material: OMNI 300; Contrast volume: 75 ml; Contrast route: INTRAVENOUS (IV); COMPARISON: No relevant prior studies available. RADIATION DOSE METRICS: Total DLP (mGy-cm): 964.22 FINDINGS: Vertebrae: alignment is normal. posterior vertebral line and the spinal laminar line normal odontoid process normal no fracture Discs/Spinal canal/Neural foramina: Diffuse degenerative disc disease throughout the cervical spine. Soft tissues: Visualized portions of the soft tissues of the neck are unremarkable. Lungs: The lung apices are normal. CT/CT cervical spine w con [id number] IMPRESSION: 1. No fracture. 2. Visualized portions of the soft tissues of the neck are unremarkable. 3. Diffuse degenerative disc disease throughout the cervical spine. No endplate erosive changes Radiation Dose CTDIVOL = (mGy): DLP = 964.22 (mGy-cm)
--- NOTE | 2019-12-11 08:55 | CTR_ITS ---
PROCEDURE INFORMATION: Exam: CT Right Upper Extremity With Contrast, Shoulder Exam date and time: 12/11/2019 12:33 PM Age: 54 years old Clinical indication: Right; Patient HX: Sepsis, R shoulder pain; Additional info: Sepsis, recent steroid injection TECHNIQUE: Imaging protocol: CT of the Right upper extremity with contrast material. Exam focused on the shoulder Radiation optimization: All CT scans at this facility use at least one of these dose optimization techniques: automated exposure control; mA and/or kV adjustment per patient size (includes targeted exams where dose is matched to clinical indication); or iterative reconstruction. Contrast material: OMNI 300; Contrast volume: 75 ml; Contrast route: INTRAVENOUS (IV); COMPARISON: No relevant prior studies available. RADIATION DOSE METRICS: Total DLP (mGy-cm): 2176.54 FINDINGS: Bones/joints: There is right os acromiale. There is joint space narrowing and osteophyte formation at the right acromioclavicular joint. There is no evidence for acute fracture or malalignment. No evidence for osteomyelitis. Soft tissues: No evidence for septic arthritis. CT/CT shoulder RT w con [id number] IMPRESSION: There are no acute concerning abnormalities. If there is desire for further evaluation, a MRI could be performed. Radiation Dose CTDIVOL = (mGy): DLP = 2176.54 (mGy-cm)
--- NOTE | 2019-12-11 08:55 | CTR_ITS ---
PROCEDURE INFORMATION: Exam: CT Lumbar Spine With Contrast Exam date and time: 12/11/2019 12:16 PM Age: 54 years old Clinical indication: Low back pain; Patient HX: Sepsis, lbp had lp yesterday TECHNIQUE: Imaging protocol: Computed tomography images of the lumbar spine with intravenous contrast. Radiation optimization: All CT scans at this facility use at least one of these dose optimization techniques: automated exposure control; mA and/or kV adjustment per patient size (includes targeted exams where dose is matched to clinical indication); or iterative reconstruction. Contrast material: OMNI 300; Contrast volume: 75 ml; Contrast route: INTRAVENOUS (IV); COMPARISON: No relevant prior studies available. RADIATION DOSE METRICS: Total DLP (mGy-cm): 1601.14 FINDINGS: Vertebrae: No acute fracture. Normal alignment. L1-L2: No significant disc protrusion. No severe spinal canal stenosis. No significant neural foraminal narrowing. L2-L3: No significant disc protrusion. No spinal canal stenosis. No neural foraminal narrowing. L3-L4: There is a diffuse disc bulge resulting in mild central canal stenosis. There is moderate left neural foraminal narrowing. There is vacuum disc phenomenon. L4-L5: There is a diffuse disc bulge with bilateral facet disease resulting in moderate central canal stenosis. There is moderate right neural foraminal narrowing. There is vacuum disc phenomenon. L5-S1: There is mild central canal stenosis. There is moderate right and mild left neural foraminal narrowing. There is vacuum disc phenomenon. Soft tissues: Unremarkable. CT/CT lumbar spine w con [id number] IMPRESSION: There are no acute concerning abnormalities. If there is desire for further evaluation, a MRI could be performed. Radiation Dose CTDIVOL = (mGy): DLP = 1601.14 (mGy-cm)
--- NOTE | 2019-12-11 08:55 | CTR_ITS ---
PROCEDURE INFORMATION: Exam: CT Thoracic Spine With Contrast Exam date and time: 12/11/2019 12:33 PM Age: 54 years old Clinical indication: Pain in thoracic spine; Without myelpathy or radiculopathy; Patient HX: Sepsis, pain TECHNIQUE: Imaging protocol: Computed tomography images of the thoracic spine with intravenous contrast. Radiation optimization: All CT scans at this facility use at least one of these dose optimization techniques: automated exposure control; mA and/or kV adjustment per patient size (includes targeted exams where dose is matched to clinical indication); or iterative reconstruction. Contrast material: OMNI 300; Contrast volume: 75 ml; Contrast route: INTRAVENOUS (IV); COMPARISON: No relevant prior studies available. RADIATION DOSE METRICS: Total DLP (mGy-cm): 2.04 FINDINGS: Vertebrae: No acute fracture. Normal alignment. No discitis or osteomyelitis. Degenerative change is identified in the spine. No central canal stenosis or neural foraminal narrowing. CT/CT thoracic spine w con [id number] IMPRESSION: There are no acute concerning abnormalities. Radiation Dose CTDIVOL = (mGy): DLP = 2062.04 (mGy-cm)
--- NOTE | 2019-12-11 08:55 | CTR_ITS ---
PROCEDURE INFORMATION: Exam: CT Chest Without Contrast Exam date and time: 12/11/2019 12:33 PM Age: 54 years old Clinical indication: Fever; Patient HX: Sepsis; Additional info: Sepsis, unknown etiology TECHNIQUE: Imaging protocol: Computed tomography of the chest without contrast. Radiation optimization: All CT scans at this facility use at least one of these dose optimization techniques: automated exposure control; mA and/or kV adjustment per patient size (includes targeted exams where dose is matched to clinical indication); or iterative reconstruction. COMPARISON: No relevant prior studies available. RADIATION DOSE METRICS: Total DLP (mGy-cm): 2887.71 FINDINGS: Lungs: There is round consolidation in the left lower lobe of the lung measuring 5.9 x 5.3 cm with air bronchograms. No associated cavitation or calcification. Pleural space: Unremarkable. No pneumothorax. No pleural effusion. Heart: Unremarkable. No cardiomegaly. No pericardial effusion. Aorta: Unremarkable. No aortic aneurysm. Lymph nodes: There are lymph nodes which are not pathologic by CT size criteria. Bones/joints: Degenerative change is identified in the spine. There is no evidence for acute fracture or malalignment. Soft tissues: Unremarkable. IMPRESSION: There is round consolidation in the left lower lobe of the lung suggestive of pneumonia. Follow-up would be recommended to ensure expected resolution. PROCEDURE INFORMATION: Exam: CT Abdomen And Pelvis Without Contrast Exam date and time: 12/11/2019 12:33 PM Age: 54 years old Clinical indication: Fever; Patient HX: Sepsis; Additional info: Sepsis, unknown etiology TECHNIQUE: Imaging protocol: Computed tomography of the abdomen and pelvis without contrast. Radiation optimization: All CT scans at this facility use at least one of these dose optimization techniques: automated exposure control; mA and/or kV adjustment per patient size (includes targeted exams where dose is matched to clinical indication); or iterative reconstruction. COMPARISON: No relevant prior studies available. RADIATION DOSE METRICS: Total DLP (mGy-cm): 2887.71 FINDINGS: Liver: Findings consistent with fatty infiltration of the liver are identified. Gallbladder and bile ducts: Normal. No calcified stones. No ductal dilation. Pancreas: Normal. No ductal dilation. Spleen: Normal. No splenomegaly. Adrenals: Normal. No mass. Kidneys and ureters: Normal. No hydronephrosis. Stomach and bowel: Unremarkable. No obstruction. No mucosal thickening. Appendix: No evidence of appendicitis. Intraperitoneal space: Unremarkable. No free air. No significant fluid collection. Vasculature: Unremarkable. No abdominal aortic aneurysm. Lymph nodes: Unremarkable. No enlarged lymph nodes. Bladder: Unremarkable as visualized. Reproductive: Unremarkable as visualized. Bones/joints: Degenerative change is identified in the spine. No acute fracture. Soft tissues: There is fat in the bilateral inguinal canal. CT/CT chest abd pel wo con IMPRESSION: There are no acute concerning abnormalities. Radiation Dose CTDIVOL = (mGy): DLP = 2887.71~2887.71 (mGy-cm)
[2019-12-11] MEDS: HYDROcodone-acetaminophen 5-325 mg Tablet 1 TAB PO ×2 (09:00→13:58)
[2019-12-11] MEDS: aspirin 81 mg EC Tablet PO (09:03)
[2019-12-11] MEDS: sennosides-docusate Tablet 2 TAB PO (09:04)
[2019-12-11] MEDS: montelukast sodium 10 mg Tablet PO (09:04)
--- NOTE | 2019-12-11 09:30 | PC.NURSE ---
Received call from CT scan regarding number of CT scans ordered with contrast. Requested staff to contact Dr. Juarez with questions.
[2019-12-11 11:00] VITALS: BP 123/84; PULSE 90; RESP 16; TEMP 36.4; O2SAT 97
[2019-12-11 11:20] LABS: Add Urine Microscopic? NO
[2019-12-11 11:34] LABS: Glucose Point of Care 233 mg/dL (70-110)
[2019-12-11 11:40] LABS: Urine Appearance Clear (CLEAR); Urine Color Yellow (Yellow); pH Urine 5 (5-7)
[2019-12-11 11:41] LABS: Bilirubin Urine Neg (Negative); Blood Urine Neg (Negative); Glucose Urine UA 4+ (Normal); Ketones Urine 1+ (Negative); Leukocyte Esterase Urine Negative (Negative); Nitrate Urine Negative (Negative); Protein Urine Neg (Negative); Specific Gravity, Urine 1.015 (1.005-1.030); Urobilinogen Urine 1 mg/dL (Negative)
--- NOTE | 2019-12-11 12:00 | PC.NURSE ---
Contacted Radiology regarding CT scans d/t patient expressed frustrations with delay in testing
--- NOTE | 2019-12-11 12:30 | PC.NURSE ---
Patient taken to CT scan in wheelchair.
[2019-12-11] MEDS: iohexol 300 mg/mL 100 mL Btl IV ×2 (13:05→13:07)
[2019-12-11] MEDS: potassium chloride ER 10 mEq Tablet 40 MEQ PO (13:57)
--- NOTE | 2019-12-11 14:52 | PC.NURSE ---
At 1400 patient put call light on. When nurse went into the room patient was on the phone. He turned to me and said I want out of here now. Im done waiting. Asked patient to allow me to contact the physician. Patient stated You can this stuff off me or I' m ripping it off . I removed IV / fluids and applied new dressing. Disconnected patient from monitor. The lead nurse contacted Dr. Juarez on my behalf. Patient refused to wait for the physician to arrive. However patient did accept the written prescriptions for doxycycline & levofloxin. I stressed the importance of filling the prescriptions and continuing the antibiotics. While walking patient out to the emergency room door. Emphasized to patient need for follow up with his primary physician.
--- NOTE | 2019-12-11 20:36 | PM.DCS ---
Discharge Providers Date of Admission: 12/10/19 20:11 Date of Discharge: December 11, 2019 Attending Provider at Admission: Sapphire Correa MD Attending Provider at Discharge: Tyron Juarez Reason for Visit Reason for Visit: MUSCLE, WEAKNESS, Hospital Course Hospital Course: 54-year-old gentleman with history as listed in H&P, including diabetes mellitus was admitted for assessment and management due to generalized weakness, noted some confusion, fever 102.8. He was frustrated as he is supposed to begin a new job on Thursday. On presentation he was found to be in sepsis, with white blood cell count 13.1, fever up to 103.2, sinus tachycardia. He did report pulling a tick from his leg, and so was started empirically on doxycycline, tick panel was sent out and is pending. She also reported feeling of fullness in the back of his neck, and so after CT head which was unremarkable lumbar puncture was performed, and he was empirically treated with vancomycin, Rocephin, acyclovir, as well as antifungal coverage. With only 3 WBCs noted on lumbar puncture bacterial meningitis not likely. Lower possibility of aseptic meningitis. Without any external rash, no a aphasia, no temporal lesions on CT, HSV encephalitis rather not likely. Rapid screen for COVID-19 was negative. During the hospital observation he remained lucid, awake, alert, with no signs of a aphasia. He did confirm that prior to admission he saw a great AP and some alliance while riding his bike. He had no further visions while in the hospital. His fever resolved. He was eager to leave the hospital, however, we had a long and detailed discussion regarding concerns of sepsis in the setting of diabetes without identified source. We discussed risks of progression of infection, severe sepsis and septic shock, spread of infection to different organs potentially resulting in disability or . Or that he may have additional conditions not yet identified at that time. He verbalized understanding. Was able to restate the major risks. He initially agreed for additional work-up, and so underwent additional assessment by UA which was unremarkable. With pressure in his neck on presentation, and chronic back pain for which he takes pain medication he was assessed by contrast CT of cervical, thoracic lumbar spine, which did not find anything to suggest localized infection there. Because he had history of right shoulder pain and corticosteroid injection there several weeks ago, right shoulder was assessed by contrast CT which was unremarkable. CT chest abdomen pelvis were performed as well to assess for sepsis of unknown source, and he was found to have left lower lobe pneumonia. Duplex ultrasound was ordered as well to exclude VTE as additional source of his symptoms. Unfortunately he did not wait to discuss the results or for any additional assessments or treatments and left after signing out AMA, including the fact that he has uncontrolled diabetes with A1c of 9.2. I only had time to put through prescriptions for him for doxycycline and Levaquin for pneumonia and tickborne infection. I was able to reach his son Tyler Handy with whom I discussed in detail regarding results of the studies so far, with concern that he had left prematurely with still ongoing sepsis again discussed the risks of severe illness, severe disability and , encouraged him to return to ER, also to make sure he takes antibiotics and otherwise to follow-up as soon as possible with PCP. Encouraged him to not start a new job with ongoing sepsis due to dangers it may pose. Son verbalized understanding and stated will give encouraged him, and that he had already discussed with patient he did agree to take his medications as prescribed. I have also requested that appointment be made with [facility] practice which appears where he may have gone before per discussion with discharge planning, discussed with his son as well who agreed to follow-up and make sure he has an appointment scheduled. Physical Exam Const: COMMON NORMALS: no acute distress and patient oriented x3 HENMT: COMMON NORMALS: oropharynx normal Neck/C-Spine: COMMON NORMALS: no JVD Resp: COMMON NORMALS: normal respiratory effort and clear to auscultation bilaterally AUSCULTATION: clear to auscultation bilaterally Cardio: COMMON NORMALS: no JVD, regular rhythm, S1 normal heart sound present, S2 normal heart sound present and No murmurs present (Cardio) RHYTHM: regular rhythm HEART SOUNDS: S1 normal heart sound present and S2 normal heart sound present GI: COMMON NORMALS: Normal to inspection, nondistended, normoactive bowel sounds present, Soft to palpation and non-tender PALPATION: Yes Soft to palpation Extremity: COMMON NORMALS: no joint enlargement and no pedal edema OTHER: 3 mm papule on posterior left thigh superior to the popliteal fossa without surrounding cellulitis or erythema noted where he indicated was site of tick bite. Neuro: COMMON NORMALS: patient oriented x3 and moves all extremities Skin: COMMON NORMALS: no rashes or lesions noted GENERAL SKIN EXAM: no rashes or lesions noted Discharge Data Data Completed and Pending: Completed Studies During Hospitalization Category Date Time Status CT cervical spine w con [id number] Routi ne Cat Scan 12/11/19 08:[address] chest abd pel wo con Routine Cat Scan 12/11/19 08:[address] facial bones w o con* [id number] Urgen t Cat Scan 12/10/19 20:[address] head wo con* [id number] Stat Cat Scan 12/10/19 14:[address] lumbar spine w con [id number] Routine Cat Scan 12/11/19 08:[address] shoulder RT w con [id number] Routine Cat Scan 12/11/19 08:[address] thoracic spine w con [id number] Routi ne Cat Scan 12/11/19 08:55 Completed FL guided lumbarp unc dx* [id number] Stat Exams 12/10/19 16:39 Completed XR chest 1V corina ble [id number] Stat Exams 12/10/19 14:26 Completed Pending at discharge Category Date Time Status Blood Culture Sta t Lab 12/10/19 15:01 Results CSF Culture & Gra m Stain Stat Lab 12/10/19 17:22 Results Lymes Disease Ant ibodies CSF Stat Lab 12/10/19 17:22 Received Miscellaneous Eliza t Routine Lab 12/10/19 17:22 Received Miscellaneous Eliza t Routine Lab 12/10/19 17:22 Received Miscellaneous Eliza t Routine Lab 12/10/19 17:22 Received [place] Encep. Virus IFA CSF Stat Lab 12/10/19 17:22 Received Tick Panel Stat Lab 12/10/19 21:30 Received VDRL on CSF Stat Lab 12/10/19 17:22 Received Labs from last 24 hours 12/11/19 12/11/19 12/11/19 11:23 11:05 06:23 WBC RBC Hgb Hct MCV MCH MCHC RDW Plt Count MPV Neut % (Auto) Lymph % (Auto) Colbert % (Auto) Eos % (Auto) Baso % (Auto) Neut # (Auto) Lymph # (Auto) Colbert # (Auto) Eos # (Auto) Baso # (Auto) Nucleated RBC % (a uto) Nucleated RBCs # Sodium Potassium Chloride Carbon Dioxide Anion Gap BUN Creatinine GFR Calculation Glucose POC Glucose 233 260 Estimat Average Gl ucose Hemoglobin A1c Calculated Osmolal ity Calcium Magnesium Total Bilirubin AST ALT Alkaline Phosphata se Troponin T Hi Sens 6Hr Troponin T Hi Sens 6Hr Delta Total Protein Albumin Globulin TSH Urine Color Yellow Urine Appearance Clear Urine pH 5 Ur Specific Gravit y 1.015 Urine Protein Neg Urine Glucose (UA) 4+ H Urine Ketones 1+ H Urine Blood Neg Urine Nitrate Negative Urine Bilirubin Neg Urine Urobilinogen 1 H Ur Leukocyte Toshia ase Negative CSF VDRL CSF Lyme IgG (Immb lot) CSF Lyme IgM (Immb lot) CSF Jose Antonio Encep h IgG CSF [facility] Enc IgM IFA CSF Jose Antonio Encep h Intrp Lyme Ab (Western B lot) Lyme IgG Bands Pre sent Lyme IgM Bands Pre sent E. chaffeensis IgG Ab E. chaffeensis IgM Ab E. chaffeensis Int erp E. chaffeensis Com ment HIV 1&2 Ab & HIV 1 Ag HIV 1&2 Antibody Rickettsia IgG Ab Rickettsia IgM Ab Misc Test Referenc e 12/11/19 12/11/19 12/11/19 05:39 05:39 05:39 WBC 11.8 H RBC 4.27 Hgb 13.6 Hct 39.7 L MCV 93.0 MCH 31.9 MCHC 34.3 RDW 12.2 Plt Count 144 MPV 12.0 H Neut % (Auto) 75.5 Lymph % (Auto) 15.9 Colbert % (Auto) 6.9 Eos % (Auto) 0.8 Baso % (Auto) 0.3 Neut # (Auto) 8.90 H Lymph # (Auto) 1.9 Colbert # (Auto) 0.8 Eos # (Auto) 0.1 Baso # (Auto) 0.0 Nucleated RBC % (a uto) 0 Nucleated RBCs # 0.0 Sodium 138 Potassium 3.3 L Chloride 101 Carbon Dioxide 24 Anion Gap 16.3 BUN 21 H Creatinine 1.2 GFR Calculation 63.3 L Glucose 244 H POC Glucose Estimat Average Gl ucose 217 Hemoglobin A1c 9.2 H Calculated Osmolal ity 291 Calcium 8.7 Magnesium 1.8 Total Bilirubin 0.5 AST 23 ALT 28 Alkaline Phosphata se 84 Troponin T Hi Sens 6Hr Troponin T Hi Sens 6Hr Delta Total Protein 6.3 L Albumin 3.5 Globulin 2.8 TSH 1.32 Urine Color Urine Appearance Urine pH Ur Specific Gravit y Urine Protein Urine Glucose (UA) Urine Ketones Urine Blood Urine Nitrate Urine Bilirubin Urine Urobilinogen Ur Leukocyte Toshia ase CSF VDRL CSF Lyme IgG (Immb lot) CSF Lyme IgM (Immb lot) CSF Jose Antonio Encep h IgG CSF [facility] Enc IgM IFA CSF [facility] Encep h Intrp Lyme Ab (Western B lot) Lyme IgG Bands Pre sent Lyme IgM Bands Pre sent E. chaffeensis IgG Ab E. chaffeensis IgM Ab E. chaffeensis Int erp E. chaffeensis Com ment HIV 1&2 Ab & HIV 1 Ag HIV 1&2 Antibody Rickettsia IgG Ab Rickettsia IgM Ab Misc Test Referenc e 12/10/19 12/10/19 12/10/19 22:39 21:30 21:30 WBC RBC Hgb Hct MCV MCH MCHC RDW Plt Count MPV Neut % (Auto) Lymph % (Auto) Colbert % (Auto) Eos % (Auto) Baso % (Auto) Neut # (Auto) Lymph # (Auto) Colbert # (Auto) Eos # (Auto) Baso # (Auto) Nucleated RBC % (a uto) Nucleated RBCs # Sodium Potassium Chloride Carbon Dioxide Anion Gap BUN Creatinine GFR Calculation Glucose POC Glucose 306 Estimat Average Gl ucose Hemoglobin A1c Calculated Osmolal ity Calcium Magnesium Total Bilirubin AST ALT Alkaline Phosphata se Troponin T Hi Sens 6Hr 17.01 H Troponin T Hi Sens 6Hr Delta 1.01 Total Protein Albumin Globulin TSH Urine Color Urine Appearance Urine pH Ur Specific Gravit y Urine Protein Urine Glucose (UA) Urine Ketones Urine Blood Urine Nitrate Urine Bilirubin Urine Urobilinogen Ur Leukocyte Toshia ase CSF VDRL CSF Lyme IgG (Immb lot) CSF Lyme IgM (Immb lot) CSF [facility] Encep h Intrp Lyme Ab (Western B lot) Pending Lyme IgG Bands Pre sent Lyme IgM Bands Pre sent E. chaffeensis IgG Ab Pending E. chaffeensis IgM Ab Pending E. chaffeensis Int erp Pending E. chaffeensis Com ment Pending HIV 1&2 Ab & HIV 1 Ag HIV 1&2 Antibody Rickettsia IgG Ab Pending Rickettsia IgM Ab Pending Misc Test Referenc e 12/10/19 12/10/19 12/10/19 17:22 17:22 17:22 WBC RBC Hgb Hct MCV MCH MCHC RDW Plt Count MPV Neut % (Auto) Lymph % (Auto) Colbert % (Auto) Eos % (Auto) Baso % (Auto) Neut # (Auto) Lymph # (Auto) Colbert # (Auto) Eos # (Auto) Baso # (Auto) Nucleated RBC % (a uto) Nucleated RBCs # Sodium Potassium Chloride Carbon Dioxide Anion Gap BUN Creatinine GFR Calculation Glucose POC Glucose Estimat Average Gl ucose Hemoglobin A1c Calculated Osmolal ity Calcium Magnesium Total Bilirubin AST ALT Alkaline Phosphata se Troponin T Hi Sens 6Hr Troponin T Hi Sens 6Hr Delta Total Protein Albumin Globulin TSH Urine Color Urine Appearance Urine pH Ur Specific Gravit y Urine Protein Urine Glucose (UA) Urine Ketones Urine Blood Urine Nitrate Urine Bilirubin Urine Urobilinogen Ur Leukocyte Toshia ase CSF VDRL CSF Lyme IgG (Immb lot) CSF Lyme IgM (Immb lot) CSF [facility] Encep h IgG CSF [facility] Enc IgM IFA CSF Jose [facility] Encep h Intrp Lyme Ab (Western B lot) Lyme IgG Bands Pre sent Lyme IgM Bands Pre sent E. chaffeensis IgG Ab E. chaffeensis IgM Ab E. chaffeensis Int erp E. chaffeensis Com ment HIV 1&2 Ab & HIV 1 Ag HIV 1&2 Antibody Rickettsia IgG Ab Rickettsia IgM Ab Misc Test Referenc e Pending Pending Pending 12/10/19 12/10/19 12/10/19 17:22 17:22 17:22 WBC RBC Hgb Hct MCV MCH MCHC RDW Plt Count MPV Neut % (Auto) Lymph % (Auto) Colbert % (Auto) Eos % (Auto) Baso % (Auto) Neut # (Auto) Lymph # (Auto) Colbert # (Auto) Eos # (Auto) Baso # (Auto) Nucleated RBC % (a uto) Nucleated RBCs # Sodium Potassium Chloride Carbon Dioxide Anion Gap BUN Creatinine GFR Calculation Glucose POC Glucose Estimat Average Gl ucose Hemoglobin A1c Calculated Osmolal ity Calcium Magnesium Total Bilirubin AST ALT Alkaline Phosphata se Troponin T Hi Sens 6Hr Troponin T Hi Sens 6Hr Delta Total Protein Albumin Globulin TSH Urine Color Urine Appearance Urine pH Ur Specific Gravit y Urine Protein Urine Glucose (UA) Urine Ketones Urine Blood Urine Nitrate Urine Bilirubin Urine Urobilinogen Ur Leukocyte Toshia ase CSF VDRL Pending CSF Lyme IgG (Immb lot) Pending CSF Lyme IgM (Immb lot) Pending CSF Jose Antonio Encep h IgG Pending CSF [facility] IgM IFA Pending CSF Jose Antonio Encep h Intrp Pending Lyme Ab (Western B lot) Lyme IgG Bands Pre sent Pending Lyme IgM Bands Pre sent Pending E. chaffeensis IgG Ab E. chaffeensis IgM Ab E. chaffeensis Int erp E. chaffeensis Com ment HIV 1&2 Ab & HIV 1 Ag HIV 1&2 Antibody Rickettsia IgG Ab Rickettsia IgM Ab Misc Test Referenc e 12/10/19 14:41 WBC RBC Hgb Hct MCV MCH MCHC RDW Plt Count MPV Neut % (Auto) Lymph % (Auto) Colbert % (Auto) Eos % (Auto) Baso % (Auto) Neut # (Auto) Lymph # (Auto) Colbert # (Auto) Eos # (Auto) Baso # (Auto) Nucleated RBC % (a uto) Nucleated RBCs # Sodium Potassium Chloride Carbon Dioxide Anion Gap BUN Creatinine GFR Calculation Glucose POC Glucose Estimat Average Gl ucose Hemoglobin A1c Calculated Osmolal ity Calcium Magnesium Total Bilirubin AST ALT Alkaline Phosphata se Troponin T Hi Sens 6Hr Troponin T Hi Sens 6Hr Delta Total Protein Albumin Globulin TSH Urine Color Urine Appearance Urine pH Ur Specific Gravit y Urine Protein Urine Glucose (UA) Urine Ketones Urine Blood Urine Nitrate Urine Bilirubin Urine Urobilinogen Ur Leukocyte Toshia ase CSF VDRL CSF Lyme IgG (Immb lot) CSF Lyme IgM (Immb lot) CSF [facility] Encep h IgG CSF [facility] Enc IgM IFA CSF Jose Antonio Encep h Intrp Lyme Ab (Western B lot) Lyme IgG Bands Pre sent Lyme IgM Bands Pre sent E. chaffeensis IgG Ab E. chaffeensis IgM Ab E. chaffeensis Int erp E. chaffeensis Com ment HIV 1&2 Ab & HIV 1 Ag Non-reactive HIV 1&2 Antibody Non-reactive Rickettsia IgG Ab Rickettsia IgM Ab Misc Test Referenc e Vitals: Last Vital Signs Temp 97.6 F 12/11/19 11:00 Pulse 90 12/11/19 11:00 Resp 16 12/11/19 11:00 BP 123/84 12/11/19 11:00 Pulse Ox 97 12/11/19 11:00 Discharge Plan Discharge Patient Disposition: Left Against Medical Advice Condition: Stable Prescriptions: New levofloxacin 750 mg tablet 750 mg PO DAILY 10 Days Qty: 10 RF: 0 doxycycline monohydrate 100 mg Tablet 100 mg PO BID 14 Days Qty: 28 RF: 0 Continued pioglitazone 15 mg tablet 15 mg PO DAILY RF: 0 atorvastatin 20 mg tablet 20 mg PO DAILY RF: 0 hydrocodone-acetaminophen 5-325 mg tablet 1 tab PO Q6H PRN (Reason: Pain) RF: 0 pantoprazole 40 mg tablet,delayed release (DR/EC) 40 mg PO DAILY RF: 0 trazodone 150 mg tablet 150 mg PO BEDTIME RF: 0 metformin 1,000 mg tablet 1,000 mg PO BID RF: 0 ropinirole 0.5 mg tablet 0.5 mg PO BID RF: 0 montelukast 10 mg tablet 10 mg PO DAILY RF: 0 fluticasone propionate 50 mcg/actuation spray,suspension See Rx Instructions .ROUTE .COMPLEX RF: 0 nortriptyline 50 mg capsule 50 mg PO BID RF: 0 metoprolol tartrate 25 mg tablet 25 mg PO BID RF: 0 pregabalin 200 mg capsule 200 mg PO TID RF: 0 Farxiga 5 mg tablet 5 mg PO DAILY RF: 0 Trulicity 1.5 mg/0.5 mL pen injector 1.5 mg SUBCUT Q7D RF: 0 Aspirin Low Dose 81 mg Tablet,Delayed Release (Dr/Ec) 81 mg PO DAILY RF: 0 Vitamin B-12 1,000 mcg/mL Drops 1 ml PO DAILY RF: 0 Changed glipizide 10 mg tablet 10 mg PO TID Qty: 90 RF: 0 Held amlodipine 10 mg tablet 10 mg PO DAILY RF: 0 Hold Instructions: Resume on 12/18/19. hydrochlorothiazide 25 mg tablet 25 mg PO DAILY RF: 0 Hold Instructions: Resume on 12/18/19. lisinopril 40 mg tablet 40 mg PO DAILY RF: 0 Hold Instructions: Resume on 12/18/19. Discontinued meloxicam 15 mg tablet 15 mg PO DAILY RF: 0 Referrals: [facility], family practice [Other] - 1-3 days Discharge Diet: Cardiac and Diabetic Activity Restrictions/Additional Instructions: Please be aware that your hospitalization is not complete, you are leaving prematurely, and so may have not fully diagnosed or treated conditions, as well as not fully treated sepsis, which may worsen, progressed to life-threatening infection, or infection spread to different organs, including her spine, brain, causing disability or . Please return to ER at any time without repercussions to continue care. So far we have found that you have pneumonia, and suspected tickborne fever. Please make sure to take antibiotics as prescribed, and follow-up with primary care office for any additional adjustments as soon as possible, but understand as your admission is incomplete we may not know that these are the only problems that are causing her symptoms. Discharge Date/Time: 12/11/19 14:45 Discharge Attestations Time Spent in Discharge Care*: greater than 30 min Quality Metrics Clinical Quality Measures During this hospital stay, did patient experience: None Coding Level of Care Code Acute Chemical Engraver for Luis Corrigan
[2019-12-12 13:17] LABS: Lyme AB Screen <0.90 index
[2019-12-14 16:23] LABS: E. Chaffeensis AB IGG <1:64; E. Chaffeensis AB IGM <1:20
[2019-12-14 21:42] LABS: VDRL on CSF NON-REACTIVE
[2019-12-15 15:33] LABS: RMSF IGG NOT DETECTED; RMSF IGM NOT DETECTED
[2019-12-15 16:27] LABS: St. Louis Enceph.Virus IGG CSF <1:1; St. Louis Enceph.Virus IGM CSF <1:1
[2019-12-15 22:41] LABS: Lyme Disease AB (IGG),IBL NO BANDS DETECTED; Lyme Disease AB (IGM), IBL NO BANDS DETECTED
== END 2019-12-11 14:45 | disposition left against medical advice (07) | DRG 871 ==
LOC: ER 15:54 → CSU 20:23
PROVIDERS: Admitting Provider Family Medicine; Emergency Provider Emergency Medicine; Visit Provider Internal Medicine
DX: A41.9 Sepsis, unspecified organism (principal); J18.9 Pneumonia, unspecified organism; G93.40 Encephalopathy, unspecified; Z68.42 Body mass index [BMI] 45.0-49.9, adult; R65.20 Severe sepsis without septic shock; G89.29 Other chronic pain; J32.9 Chronic sinusitis, unspecified; E11.42 Type 2 diabetes mellitus with diabetic polyneuropathy; E11.65 Type 2 diabetes mellitus with hyperglycemia; E78.5 Hyperlipidemia, unspecified; I10 Essential (primary) hypertension; E66.01 Morbid (severe) obesity due to excess calories; G47.33 Obstructive sleep apnea (adult) (pediatric); G25.81 Restless legs syndrome; Z86.73 Personal history of transient ischemic attack (TIA), and cerebral infarction without residual deficits; Z87.891 Personal history of nicotine dependence; E86.0 Dehydration; M54.9 Dorsalgia, unspecified; Z53.29 Procedure and treatment not carried out because of patient's decision for other reasons; Z79.84 Long term (current) use of oral hypoglycemic drugs; Z79.891 Long term (current) use of opiate analgesic
CPT/HCPCS: 12345; 36415; 36416; 62270; 62328; 70450; 70486; 71045; 71250; 72126; 72129; 72132; 73201; 74176; 80053; 80306; 80500; 81003; 82945; 82962; 83036; 83605; 83735; 84157; 84443; 84484; 85025; 85378; 85384; 85610; 86592; 86617; 86618; 86653; 86666; 86757; 87040; 87070; 87075; 87205; 87426; 87804; 87806; 89050; 93005; 96372; 97161; 99283; J0133; J0696; J1450; J1650; J1815; J1885; J2270; J3370; J7040; J7050; Q9967

== ENCOUNTER 2023-09-13 17:10 | Emergency (ER) | payer MEDICAID, SELFPAY ==
[2023-09-13 17:13] VITALS: BP 166/102; PULSE 96; RESP 17; TEMP 36.6; O2SAT 96; BMI 30.4
--- NOTE | 2023-09-13 17:59 | W.ED.SKABFB ---
HPI - Skin/Abscess/Foreign Bdy General: Chief complaint: Skin/Abscess/Foreign Body Stated complaint: Left foot soar--diabetic type 2 Time Seen by Provider: 09/13/23 17:33 History of Present Illness: 58-year-old man with history of diabetes who presents the emergency room with a left foot wound. He has had a sore on his left foot for about 4 to 5 days now. He has been going to work on it. No active drainage. Some surrounding erythema. He said he had to have emergency foot surgery wants so he finally decided come into the emergency room. Review of Systems Narrative: Constitutional symptoms: Negative except as documented in HPI. Skin symptoms: Negative except as documented in HPI. Eye symptoms: Negative except as documented in HPI. ENMT symptoms: Negative except as documented in HPI. Respiratory symptoms: Negative except as documented in HPI. Cardiovascular symptoms: Negative except as documented in HPI. Gastrointestinal symptoms: Negative except as documented in HPI. Genitourinary symptoms: Negative except as documented in HPI. Musculoskeletal symptoms: Negative except as documented in HPI. Neurologic symptoms: Negative except as documented in HPI. Psychiatric symptoms: Negative except as documented in HPI. Endocrine symptoms: Negative except as documented in HPI. [facility] ED PFSH: Medical History (Updated 09/13/23 @ 19:44 by Bella Yepez MD) Acute encephalopathy Morbid obesity Chronic sinusitis Allergic rhinitis Restless leg syndrome Obstructive sleep apnea Dyslipidemia HTN (hypertension) TIA (transient ischemic attack) Neuropathy Chronic pain Diabetes Social History Smoking and tobacco/nicotine status: former use of tobacco/nicotine Quit status (tobacco/nicotine): has quit using Year quit tobacco: 2019 Alcohol intake: former Year of sobriety/quit date alcohol: 2014 Substance/Drug Use: never Lives independently: Yes Current occupational status: employed Physical Exam Narrative: EXAM NARRATIVE: General: Alert, no acute distress. Skin: Warm, dry. On the central ball of the foot there is a wound. This is subcutaneous. Currently does not have any drainage. Some mild erythema surrounding. Head: Normocephalic, atraumatic. Neck: Supple, trachea midline. Eye: Extraocular movements are intact. Ears, nose, mouth and throat: mucosa moist. Cardiovascular: Regular, Normal peripheral perfusion. Respiratory: Lungs are clear to auscultation, respirations are non-labored, breath sounds are equal, Symmetrical chest wall expansion. Gastrointestinal: Soft, Nontender, Non distended, Normal bowel sounds. Musculoskeletal: Normal ROM, no deformity. Neurological: Alert and oriented, No focal neurological deficit observed. Psychiatric: Cooperative, appropriate mood & affect. Course Vital Signs: Vital signs: Vital Signs Temperature 98 F 09/13/23 17:13 Pulse Rate 96 09/13/23 17:13 Respiratory Rate 17 09/13/23 17:13 Blood Pressure 166/102 09/13/23 17:13 Pulse Oximetry 96 09/13/23 17:13 Oxygen Delivery Me thod Room Air 09/13/23 17:13 MDM - Skin/Abscess/Foreign Bdy Medicial Decision Making Medical decision making: Differential diagnosis including but not limited to and based on the above HPI, review of systems and physical exam: Diabetic foot ulcer with concern for osteomyelitis. Lab work and inflammatory markers to evaluate severity of infection. Orders placed to evaluate differential diagnosis based on the above differential, HPI and physical exam Consultation: I spoke with Dr. Neil with podiatry. He reviewed images of the wound and x-rays. Recommends clinda and ciprofloxacin. X-ray of the left foot. No evidence of osteomyelitis or fractures. This was reviewed and interpreted by myself the emergency room physician. Lab review: Lab work is fairly unremarkable. No leukocytosis. No renal failure. Eview: Laboratory results were reviewed and interpreted by myself the emergency room physician. CRP is normal. ESR is minimally elevated at 15. I reviewed the patient's medical record. Reexamination: Patient remained stable. No increased work of breathing. No change in the wound on his foot. No altered mental status. We discussed the findings and the plan to follow-up with Dr. Neil Assessment and plan: Diabetic foot ulcer -First dose clinda and Cipro in the emergency room. - Discharged home - Discussed plan with patient. Answered any questions. - Evaluation and treatment of this problem were appropriate in the emergency setting. Lab Data 09/13/23 18:37 09/13/23 18:37 Laboratory Results WBC 5.66 10^3/uL (3.29-11.43) 09/13/23 18:37 RBC 4.89 10^6/uL (3.85-5.65) 09/13/23 18:37 Hgb 15.50 g/dL (11.27-16.99) 09/13/23 18:37 Hct 43.3 % (37-53) 09/13/23 18:37 MCV 88.5 fl (82-101) 09/13/23 18:37 MCH 31.7 pg (27-33) 09/13/23 18:37 MCHC 35.8 g/dL (30-55) 09/13/23 18:37 RDW 11.9 % (12.1-15.1) L 09/13/23 18:37 Plt Count 206 10^3/cmm (157-399) 09/13/23 18:37 MPV 11.2 fL (7.4-10.4) H 09/13/23 18:37 Neut % (Auto) 52.6 % 09/13/23 18:37 Lymph % (Auto) 31.1 % 09/13/23 18:37 [place] % (Auto) 10.2 % 09/13/23 18:37 Eos % (Auto) 4.6 % 09/13/23 18:37 Baso % (Auto) 1.1 % 09/13/23 18:37 Neut # (Auto) 2.98 10^3/uL (1.8-7.7) 09/13/23 18:37 Lymph # (Auto) 1.8 10^3/uL (0.8-4.8) 09/13/23 18:37 [place] # (Auto) 0.6 10^3/uL (0.2-0.9) 09/13/23 18:37 Eos # (Auto) 0.3 10^3/uL (0.0-0.8) 09/13/23 18:37 Baso # (Auto) 0.1 10^3/uL (0.0-0.1) 09/13/23 18:37 Nucleated RBC % (auto) 0 % 09/13/23 18:37 Nucleated RBCs # 0.0 /100WBC 09/13/23 18:37 ESR 15 mm/hr (0-10) H 09/13/23 18:37 Sodium 139 mmol/L (136-145) 09/13/23 18:37 Potassium 3.9 mmol/L (3.5-5.1) 09/13/23 18:37 Chloride 106 mmol/L (98-107) 09/13/23 18:37 Carbon Dioxide 22 mmol/L (22-29) 09/13/23 18:37 Anion Gap 14.9 (5-19) 09/13/23 18:37 BUN 15 mg/dL (6-20) 09/13/23 18:37 Creatinine 0.8 mg/dL (0.7-1.2) 09/13/23 18:37 GFR Calculation 99.6 mL/min (90-130) 09/13/23 18:37 Glucose 183 mg/dL (65-115) H 09/13/23 18:37 Calculated Osmolality 294 mOsm/kg (285-295) 09/13/23 18:37 Lactic Acid 2.0 mmol/L (0.5-2.2) 09/13/23 18:37 Calcium 9.2 mg/dL (8.5-10.5) 09/13/23 18:37 Total Bilirubin 0.4 mg/dL (0.15-1.2) 09/13/23 18:37 AST 21 U/L (0-40) 09/13/23 18:37 ALT 21 U/L (0-41) 09/13/23 18:37 Alkaline Phosphatase 87 U/L (40-130) 09/13/23 18:37 C-Reactive Protein 4.2 mg/L (0.0-4.9) 09/13/23 18:37 Total Protein 7.5 g/dL (6.6-8.7) 09/13/23 18:37 Albumin 4.2 g/dL (3.5-5.2) 09/13/23 18:37 Globulin 3.3 g/dL (1.3-4.6) 09/13/23 18:37 All radiology interpretation(s) finalized by discharge Discharge Plan Discharge Patient Disposition: Home Clinical Impression: Diabetic foot ulcer Qualifiers: Diabetic foot ulcer location: midfoot Diabetes mellitus type: type 2 Laterality: left Non-pressure ulcer stage: limited to breakdown of skin Qualified Code(s): E11.621 - Type 2 diabetes mellitus with foot ulcer Condition: Stable Prescriptions: New clindamycin HCl 300 mg capsule 600 mg PO Q8H 10 Days Qty: 60 0RF ciprofloxacin HCl 500 mg tablet 500 mg PO BID 10 Days Qty: 20 0RF No Action trazodone 150 mg tablet 150 mg PO BEDTIME 30 Days Qty: 30 0RF pioglitazone 15 mg tablet 15 mg PO DAILY atorvastatin 20 mg tablet 20 mg PO DAILY hydrocodone-acetaminophen 5-325 mg tablet 1 tab PO Q6H PRN (Reason: Pain) meloxicam 15 mg tablet 15 mg PO DAILY glipizide 10 mg tablet 10 mg PO BID amlodipine 10 mg tablet 10 mg PO DAILY pantoprazole 40 mg tablet,delayed release (DR/EC) 40 mg PO DAILY metformin 1,000 mg tablet 1,000 mg PO BID ropinirole 0.5 mg tablet 0.5 mg PO BID montelukast 10 mg tablet 10 mg PO DAILY hydrochlorothiazide 25 mg tablet 25 mg PO DAILY lisinopril 40 mg tablet 40 mg PO DAILY fluticasone propionate 50 mcg/actuation spray,suspension See Rx Instructions .ROUTE .COMPLEX Rx Instructions: intranasally USE DIRECTED nortriptyline 50 mg capsule 50 mg PO BID metoprolol tartrate 25 mg tablet 25 mg PO BID pregabalin 200 mg capsule 200 mg PO TID Farxiga 5 mg tablet 5 mg PO DAILY Trulicity 1.5 mg/0.5 mL pen injector 1.5 mg SUBCUT Q7D Rx Instructions: PT STATES HE USES ON TUESDAYS Margie Low Dose Aspirin 81 mg Tablet,Delayed Release (Dr/Ec) 81 mg PO DAILY Vitamin B-12 1,000 mcg/mL Drops 1 ml PO DAILY Discharge Orders: Discharge ED (Routine); Ordered 09/13/23 Ordered By: Bella Yepez Referrals: Bassam Neil DPM [Physician] - 1-3 days (Dr. Neil's clinic will contact you for an appointment. If you do not hear from him in the next 24 to 48 hours please contact his clinic.) Discharge Diet: Usual diet Discharge Activity: Increase activity as tolerated Patient Instructions: Foot Care for People with Diabetes (ED), Foot Ulcers in a Person with Diabetes (ED) Activity Restrictions/Additional Instructions: Thank you for choosing [facility] for your healthcare needs today. Please realize this is an emergency room and that we are providing you with a medical screening exam and this may not be complete and all inclusive of all the testing and or work up that you may need to determine your ailment or severity of your illness. You have been screened and evaluated and felt safe for discharge. Health conditions do change or evolve sometimes and as such it is important that you follow up with your Primary Doctor to be re checked, 3-5 days is a general good time frame for follow up. You are always welcome to return to the ED for re assessment if your symptoms are worsening or you have new concerns Coding Level of Care Code ED Radio Aerial Installer for Luis Corrigan
--- NOTE | 2023-09-13 18:00 | XRR_ITS ---
PROCEDURE INFORMATION: Exam: XR Left Foot Exam date and time: 09/13/2023 6:09 PM Age: 58 years old Clinical indication: Pain; Foot; Left; Additional info: Sore on dorsum of foot. R/O osteo. Diabetic TECHNIQUE: Imaging protocol: Radiologic exam of the left foot. Views: 3 or more views. COMPARISON: No relevant prior studies available. FINDINGS: Bones/joints: Mild osteoarthritis in the 1st metatarsophalangeal joint and throughout the distal interphalangeal joints.No acute fracture, dislocation, or aggressive osseous lesion. Soft tissues: No significant soft tissue swelling. XR/XR foot LT min 3V* [id number] IMPRESSION: No radiographic evidence for osteomyelitis.
[2023-09-13 18:52] LABS: Basophils # 0.1 10^3/uL (0.0-0.1); Basophils % 1.1 %; Eosinophils # 0.3 10^3/uL (0.0-0.8); Eosinophils % 4.6 %; Hematocrit 43.3 % (37-53); Lymphocytes # 1.8 10^3/uL (0.8-4.8); Lymphocytes % 31.1 %; Mean Corpuscular HGB Conc 35.8 g/dL (30-55); Mean Corpuscular Hemoglobin 31.7 pg (27-33); Mean Corpuscular Volume 88.5 fl (82-101); Mean Platelet Volume 11.2 fL (7.4-10.4); Monocytes # 0.6 10^3/uL (0.2-0.9); Monocytes % 10.2 %; Neutrophils # 2.98 10^3/uL (1.8-7.7); Neutrophils % 52.6 %; Nucleated Red Blood Cells % 0 %; Platelet Count 206 10^3/cmm (157-399); Red Blood Count 4.89 10^6/uL (3.85-5.65); Red Cell Distribution Width 11.9 % (12.1-15.1); White Blood Count 5.66 10^3/uL (3.29-11.43)
[2023-09-13 18:55] LABS: Erythrocyte Sedimentation Rate 15 mm/hr (0-10)
[2023-09-13 19:07] LABS: Alanine Aminotransferase 21 U/L (0-41); Albumin Level 4.2 g/dL (3.5-5.2); Alkaline Phosphatase 87 U/L (40-130); Anion Gap 14.9 (5-19); Aspartate Amino Transferase 21 U/L (0-40); Blood Urea Nitrogen 15 mg/dL (6-20); C Reactive Protein 4.2 mg/L (0.0-4.9); Calcium 9.2 mg/dL (8.5-10.5); Carbon Dioxide 22 mmol/L (22-29); Chloride 106 mmol/L (98-107); Creatinine Clr Calc Pharmacy 140.4072; Globulin 3.3 g/dL (1.3-4.6); Glomerular Filtration Rate 99.6 mL/min (90-130); Glucose 183 mg/dL (65-115); Osmolality Calculated 294 mOsm/kg (285-295); Potassium 3.9 mmol/L (3.5-5.1); Sodium 139 mmol/L (136-145); Total Bilirubin 0.4 mg/dL (0.15-1.2); Total Protein 7.5 g/dL (6.6-8.7)
[2023-09-13] MEDS: clindamycin 150 mg Capsule 300 MG PO (19:58)
[2023-09-13] MEDS: ciprofloxacin 500 mg Tablet PO (19:58)
[2023-09-13 20:08] VITALS: BP 166/102; PULSE 96; RESP 17; TEMP 36.6; O2SAT 96
== END 2023-09-13 20:05 | disposition home or self-care (01) ==
PROVIDERS: Emergency Provider Emergency Medicine
DX: E11.621 Type 2 diabetes mellitus with foot ulcer (principal); Z79.82 Long term (current) use of aspirin; Z79.85 Long-term (current) use of injectable non-insulin antidiabetic drugs; Z79.84 Long term (current) use of oral hypoglycemic drugs; E78.5 Hyperlipidemia, unspecified; I10 Essential (primary) hypertension; Z86.73 Personal history of transient ischemic attack (TIA), and cerebral infarction without residual deficits; E11.42 Type 2 diabetes mellitus with diabetic polyneuropathy; Z87.891 Personal history of nicotine dependence
CPT/HCPCS: 36415; 73630; 80053; 83605; 85025; 85651; 86140; 99284

== ENCOUNTER → 2023-09-23 14:30 | Outpatient (BNVA) | payer MEDICAID, SELFPAY | PROVIDERS: PCP Nurse Practitioner Family; Visit Provider Podiatrist Foot & Ankle Surgery | DX: L97.522 Non-pressure chronic ulcer of other part of left foot with fat layer exposed (principal); E11.621 Type 2 diabetes mellitus with foot ulcer; L97.421 Non-pressure chronic ulcer of left heel and midfoot limited to breakdown of skin; E11.42 Type 2 diabetes mellitus with diabetic polyneuropathy; G62.9 Polyneuropathy, unspecified; Z79.84 Long term (current) use of oral hypoglycemic drugs | CPT/HCPCS: 73610 ==

== ENCOUNTER → 2023-09-28 09:10 | Outpatient (BNVA) | payer MEDICAID, SELFPAY | PROVIDERS: PCP Nurse Practitioner Family; Visit Provider Nurse Practitioner Family | DX: Z12.5 Encounter for screening for malignant neoplasm of prostate (principal); E11.42 Type 2 diabetes mellitus with diabetic polyneuropathy | CPT/HCPCS: 80053; 80061; 83036; 84443; 85025; G0103 ==

== ENCOUNTER → 2023-10-14 10:31 | Outpatient (BNVA) | payer MEDICAID, SELFPAY | PROVIDERS: PCP Nurse Practitioner Family; Visit Provider Physician Assistant | DX: M17.0 Bilateral primary osteoarthritis of knee (principal) | CPT/HCPCS: 73560; 73565 ==

== ENCOUNTER → 2024-01-07 11:17 | Outpatient (BNVA) | payer MEDICAID, SELFPAY | PROVIDERS: PCP Nurse Practitioner; Visit Provider Nurse Practitioner | DX: E11.9 Type 2 diabetes mellitus without complications (principal) | CPT/HCPCS: 80053; 81000; 83036 ==

== ENCOUNTER 2024-03-17 11:19 | Outpatient (CLI) | payer MEDICAID, SELFPAY ==
--- NOTE | 2024-03-17 11:23 | MR_ITS ---
WS: [id number] MRI BRAIN WITH HIGH-RESOLUTION IMAGING THROUGH THE INTERNAL AUDITORY CANALS WITHOUT AND WITH CONTRAST HISTORY: SENSORINEURAL HEARING LOSS,BILATERAL/TINNITUS,BILATERAL COMPARISON: 05/04/2014 TECHNIQUE: Multiplanar, multisequence imaging is performed through the brain. Additional 3 mm imaging performed in multiple planes through the internal auditory canal. Postcontrast imaging with 20 ml's of MultiHance. No acute intracranial hemorrhage, midline shift, edema or mass effect. No significant atrophy. No prior infarct or small vessel disease. Ventricles and extra-axial spaces are normal. No inferior displacement of cerebellar tonsils. Clivus and pituitary gland are normal. Internal and external auditory canals: Unremarkable. Cranial nerves VII and VIII complexes: Unremarkable. No enhancement or mass. Cerebellopontine angles: Normal. Paranasal sinuses: Normal. Mastoid air cells: Normal. Calvarium and scalp: Normal. Visualized [place] and dural venous sinuses demonstrate no abnormality. MR/MR iac's wo/w con* [id number] IMPRESSION: Normal MRI IACs.
[2024-03-17] MEDS: gadobenate dimeglumine 20 mL vial IV (12:49)
== END 2024-03-17 11:20 | disposition home or self-care (01) ==
LOC: RAD 11:20
PROVIDERS: PCP Nurse Practitioner; Visit Provider Otolaryngology
DX: H90.3 Sensorineural hearing loss, bilateral (principal); H93.13 Tinnitus, bilateral
CPT/HCPCS: 70553; A9577

== ENCOUNTER → 2024-05-27 09:21 | Outpatient (BNVA) | payer MEDICAID, SELFPAY | PROVIDERS: PCP Nurse Practitioner; Visit Provider Physician Assistant | DX: M75.41 Impingement syndrome of right shoulder (principal) | CPT/HCPCS: 73030 ==

== ENCOUNTER → 2024-06-01 09:03 | Outpatient (BNVA) | payer MEDICAID, SELFPAY | PROVIDERS: PCP Nurse Practitioner; Visit Provider Nurse Practitioner | DX: I10 Essential (primary) hypertension (principal); E78.5 Hyperlipidemia, unspecified; J30.89 Other allergic rhinitis; E11.42 Type 2 diabetes mellitus with diabetic polyneuropathy; G62.9 Polyneuropathy, unspecified; G47.00 Insomnia, unspecified; E11.9 Type 2 diabetes mellitus without complications; E11.65 Type 2 diabetes mellitus with hyperglycemia; Z79.4 Long term (current) use of insulin | CPT/HCPCS: 80053; 80061; 81000; 83036 ==

== ENCOUNTER 2024-07-26 12:39 | Outpatient (CLI) | payer MEDICAID, SELFPAY ==
--- NOTE | 2024-07-26 13:00 | MR_ITS ---
WS: [id number] MRI RIGHT SHOULDER NONCONTRAST TECHNIQUE: Sagittal T2, coronal T1, T2 and proton density imaging. Axial gradient PDE imaging. CLINICAL INFORMATION: impingement of right shoulder COMPARISON: None. FINDINGS: Moderate to advanced arthritis AC joint with slight downsloping acromion. Subacromial spurring. Small amount of subacromial subdeltoid fluid. Fluid at the AC joint. Narrowing of the subacromial space with impingement on the distal supraspinatus and infraspinatus. Tendinopathy supraspinatus with a small insertional tear. No tendon retraction. Mild tendinopathy infraspinatus. Normal teres minor. Normal subscapularis. Biceps tendon appears present in the bicipital groove. Intra-articular biceps tendon appears intact. Tendinopathy intra-articular biceps tendon. Moderate degenerative narrowing glenohumeral articulation. Cystic degenerative changes greater tuberosity. MR/MR shoulder RT wo con* [id number] IMPRESSION: 1. Moderate to advanced arthritis AC joint with fluid and edema. Subacromial s ubdeltoid fluid. Narrowing of the subacromial space with impingement. 2. Small insertional tear supraspinatus. Tendinopathy supraspinatus and infras pinatus. 3. Biceps tendon appears intact within the bicipital groove. Tendinopathy intr a-articular biceps tendon. 4. Moderate degenerative narrowing glenohumeral articulation.
--- NOTE | 2024-07-26 13:00 | MR_ITS ---
WS: [id number] MRI RIGHT KNEE NONCONTRAST TECHNIQUE: Axial PD, coronal PD fat sat, coronal PD, sagittal PD, and sagittal PD fat-sat images obtained. CLINICAL INFORMATION: right knee pain COMPARISON: None. FINDINGS: Distal quadriceps and patella tendons are intact. Normal ACL and PCL. Advanced degenerative narrowing lateral joint compartment with subchondral cystic change. Medial and lateral collateral ligaments appear intact. Moderate chondromalacia patella. Normal popliteal fossa. Trace popliteal fluid. Fibular head appears normal. Biceps femoris appears intact. Small suprapatellar effusion. Peripheral extrusion of the lateral meniscus. Chronic appearing tear involving the anterior horn lateral meniscus with chronic intrasubstance signal abnormality involving the lateral meniscus. Chronic thinning of the medial meniscus. Grade IV chondromalacia lateral joint c ompartment. MR/MR knee RT wo con* [id number] IMPRESSION: 1. Moderate to advanced tricompartment arthritis with advanced joint space ghislaine rowing in the lateral joint compartment with grade IV chondromalacia. 2. ACL and PCL appear intact. 3. Moderate chondromalacia patella with small suprapatellar effusion. 4. Tear of the anterior horn lateral meniscus with diffuse increased signal ab normality in the lateral meniscus. Thinning with peripheral extrusion of the la teral meniscus. 5. Chronic thinning of the medial meniscus. Outbridge grading: grade IV: full-thickness cartilage loss with underlying bone reactive changes
== END 2024-07-26 12:40 | disposition home or self-care (01) ==
LOC: RAD 12:40
PROVIDERS: PCP Nurse Practitioner; Visit Provider Physician Assistant
DX: S83.281A Other tear of lateral meniscus, current injury, right knee, initial encounter (principal); M75.41 Impingement syndrome of right shoulder; M19.011 Primary osteoarthritis, right shoulder; M67.813 Other specified disorders of tendon, right shoulder; M75.101 Unspecified rotator cuff tear or rupture of right shoulder, not specified as traumatic; R93.89 Abnormal findings on diagnostic imaging of other specified body structures; M17.11 Unilateral primary osteoarthritis, right knee; M94.261 Chondromalacia, right knee; X58.XXXA Exposure to other specified factors, initial encounter; R93.6 Abnormal findings on diagnostic imaging of limbs
CPT/HCPCS: 73221; 73721

== ENCOUNTER → 2024-08-31 09:03 | Outpatient (BNVA) | payer MEDICAID, SELFPAY | PROVIDERS: PCP Nurse Practitioner; Visit Provider Nurse Practitioner | DX: E11.9 Type 2 diabetes mellitus without complications (principal) | CPT/HCPCS: 80053; 81000; 83036 ==

== ENCOUNTER 2024-11-06 12:17 | Emergency (ER) | payer MEDICAID, SELFPAY ==
--- OUTSIDE RECORDS SUMMARY | 2024-11-06 12:22 | XMS_ITS | Clinical Summary ---
Author Organization [facility] Address [address] [place] [address] Phone Care Team Providers Care Laborer/Grade Check Name Role Phone Unavailable Primary Care Provider Unavailabl e Allergies Active Allergy Reactions Criticality Noted Date Comments Penicillins Unknown 10/22/2011 Medications ibuprofen (MOTRIN) 200 mg Oral tablet Take 800 mg by mouth every 6 hours as needed. Active naproxen (NAPROSYN) 500 mg Oral tablet Take 1 Tab by mouth 2 times daily with meals. 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 Gender Identity Not on file Sexual Orientation Not on file Last Filed Vital Signs Vital Sign Reading Time Taken Comments Blood Pressure 160/110 10/22/2011 3:00 PM CDT Pulse 102 10/22/2011 3:00 PM CDT Temperature 36.6 C (97.9 F) 10/22/2011 1:52 PM CDT Respiratory Rate 20 10/22/2011 3:00 PM CDT Oxygen Saturation 99% 10/22/2011 3:00 PM CDT Inhaled Oxygen Concentration - - Weight 122.5 kg (270 lb) 10/22/2011 1:52 PM CDT Height 193 cm (6' 4 ) 10/22/2011 1:52 PM CDT Body Mass Index 32.87 10/22/2011 1:52 PM CDT Plan of Treatment Health Maintenance Due Date Last Done Comments DTAP/TDAP/TD VACCINES (1 - Tdap) 1985 HEPATITIS B VACCINES (1 of 3 - 19+ 3-dose series) 06/29 COLORECTAL SCREENING 07/18/2011 Colorectal Cancer Screening 07/18/2011 FIT-DNA Q 3 years 07/18/2011 FIT/FOBT Q 1 year 07/18/2011 Flex Sig/CT Colonography Q 5 years 07/18/2011 ZOSTER VACCINE (1 of 2) 2016 INFLUENZA VACCINE (#1) 2024
--- OUTSIDE RECORDS SUMMARY | 2024-11-06 12:22 | XMS_ITS | Clinical Summary ---
Author Organization [employer] [facility] Address [address] 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
--- OUTSIDE RECORDS SUMMARY | 2024-11-06 12:22 | XMS_ITS | Patient Health Record ---
Author Organization [facility] Address [address] [place], [place] [address]UY [id number] Care Team Providers Care Candy Waffle Assembler Name Role Phone Yana Brink [phone] Fore, Cassie Unavailable Unavailable ALLERGIES Allergen (clinical drug ingredient) Drug/Non Drug Allergy documented on EMR Reaction Allergy Type Onset Date Status Penicillin Unknown Drug Allergy Active REASON FOR REFERRAL No Information MEDICATIONS Medication SIG (Take, Route, Frequency, Duration) Notes Start Date End Date Status Pantoprazole Sodium 40 MG 1 tablet Orall y Once a day Active Aspirin 81 81 MG 1 tablet Orally Once a day Active Pregabalin 200 MG 1 capsule Orally Thr e times a day Active hydroCHLOROthiazide 25 MG 1 tablet in th e morning Orally Once a day Active Ezetimibe 10 MG TAKE 1 TABLET BY LIBERTAD TH ONCE DAILY for 30 Active Montelukast Sodium 10 MG 1 tablet Orally Once a day Active Fluticasone Propionate 50 MCG/ACT Nasal for 30 Active amLODIPine Besylate 10 MG 1 tablet Orall y Once a day Active Atorvastatin Calcium 20 MG 1 tablet Oral ly Once a day Active Meloxicam 15 MG 1 tablet Orally Once a day Active Basaglar KwikPen 100 UNIT/ML as directed Subcutaneous once a day Active Metoprolol Tartrate 25 MG 1 tablet with food Orally once a day Active Jardiance 25 MG 1 tablet Orally Once a day Active traZODone HCl 150 MG 1 tablet at bedtime Orally Once a day Active Lisinopril 40 MG 1 tablet Orally Once a day Active Trulicity 3 MG/0.5ML as directed Subcutaneous weekly Active SOCIAL HISTORY Tobacco Use: Social History Observation Description Date Details (start date - stop date) Current Smoker 07/15/1983 - NA Sex Assigned At : Social History Observation Description Sex Assigned At Unknown Tobacco Use/Smoking Question Answer Notes Smoking Status: current smoker How often do you smoke cigarettes? every day How soon after you wake up do you smoke your fir st cigarette? within 5 minutes How many cigarettes a day do you smoke? 21-30 Are you interested in quitting? Not ready to sofia t When did you start smoking? 07/15/1983 Alcohol Screen Question Answer Notes Did you have a drink containing alcohol in the p ast year? Yes How often did you have 6 or more drinks on one occasion in the past year? 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.4) Active confirmed 404525605 Problem Left ventricular hypertrophy (I51.7) Active confirmed Left ventricular hypertrophy (90859460) Problem Coronary arteriosclerosis (I25.10) Active confirmed 30457761 PLAN OF TREATMENT Pending Test Test Name Order Date ECG 07/14/2022 Echo - 2D Echo (with 3D if indicated) Future Test Test Name Order Date Nuclear - MPI Exercise 07/14/2022 Insurance Providers Payer Name Payer Address Payer Phone Subscriber Number Group Number Insured Name Patient Relationship to Insured Coverage Start Date Coverage End Date [place] [address] [place] [address] [id number] DEMAR FRITZ Self - patient is the insured MEDICAL (GENERAL) HISTORY Medical History History ICD Code Hypertension Diabetes Hyperlipidemia Neuropathy CAD Sleep Apnea Surgical History Surgery Date(Month/Year) carpal tunnel release Tonsillectomy Heart Cath Hospitalization History Reason Date(Month/Year) Infection to foot 2020
[2024-11-06 12:44] VITALS: BP 156/109; PULSE 99; RESP 16; TEMP 36.9; O2SAT 96
--- NOTE | 2024-11-06 13:38 | W.ED.EXTPRO ---
HPI - Extremity Problem General: Chief complaint: Extremity Injury, Lower Stated complaint: rt foot swollen Time Seen by Provider: 11/06/24 13:01 Source: patient and old records reviewed Mode of arrival: ambulatory Limitations: no limitations History of Present Illness: Patient is a 59-year-old male who presents the emergency department complaining of bleeding wound to right foot. He is diabetic, has had a history of diabetic foot wounds, and sees Dr. Neil with podiatry. Last visit was 10/03 where he was being evaluated for a linear fissure at prior surgical site of his right foot, overall no issues at that time. Patient states that this morning he awoke to bleeding at the site, and has since stopped bleeding. He does not report any pain, but has noted that his foot has been more swollen. He does not report any systemic symptoms of fever, nausea/vomiting, or malaise/illness. States that he does not wear any sort of diabetic shoe orthopedic shoe because they hurt his feet. There is no dressing to the wound on arrival. MD Complaint: extremity pain and extremity swelling Location: right and lower extremity (foot) Associated symptoms: Deny chest pain, fever(s) or rash Context: other (T2DM) Related Data Home Medications ?Medication ?Instructions ?Recorded ?Confirmed atorvastatin 20 mg tablet 20 mg PO BEDTIME 11/06/24 11/06/24 fluticasone propionate 50 2 spray intranasal DAILY PRN 11/06/24 11/06/24 mcg/actuation nasal allergies spray,suspension Previous Rx's ?Medication ?Instructions ?Recorded diabetic shoes w/3 inserts #1 ea 09/16/23 diabetic shoes with 3 inserts #1 ea 09/23/23 aspirin 81 mg tablet,delayed 81 mg PO DAILY #90 tabs 10/07/23 release (Margie Low Dose Aspirin) pen needle, diabetic 33 gauge x #100 ea 06/01/24 Diabetic Shoes #1 ea 07/21/24 amlodipine 5 mg tablet 5 mg PO DAILY #30 tabs 08/31/24 cetirizine 10 mg tablet (Zyrtec) 10 mg PO DAILY #30 tabs 08/31/24 chlorhexidine gluconate 0.12 % 15 ml buccal BID #473 mL 08/31/24 mouthwash (Peridex) empagliflozin 25 mg tablet 25 mg PO QAM #30 tabs 08/31/24 (Jardiance) ezetimibe 10 mg tablet 10 mg PO DAILY #30 tabs 08/31/24 hydralazine 50 mg tablet 50 mg PO Q12H #60 tabs 08/31/24 insulin glargine 100 unit/mL (3 40 unit (0.4 mL) SUBCUT QAM #15 mL 08/31/24 mL) subcutaneous pen (Lantus Solostar U-100 Insulin) lisinopril 40 mg tablet 40 mg PO DAILY #30 tabs 08/31/24 metoprolol tartrate 25 mg tablet 25 mg PO BID #60 tabs 08/31/24 pregabalin 200 mg capsule 200 mg PO Q12H #60 caps 08/31/24 trazodone 150 mg tablet 150 mg PO BEDTIME 30 days #30 tabs 08/31/24 semaglutide 1 mg/dose (4 mg/3 mL) 1 mg (0.75 mL) SUBCUT .on Thursday10/08/24 subcutaneous pen injector (Ozempic) #3 mL ciprofloxacin HCl 500 mg tablet 500 mg PO BID 10 days #20 tabs 11/06/24 (Cipro) clindamycin HCl 300 mg capsule 300 mg PO TID 10 days #30 caps 11/06/24 (Cleocin HCl) Allergies Allergy/AdvReac Type Severity Reaction Status Date / Time Alpha-Gal Allergy ALGY-Anaphy Verified 10/03/24 14:33 (Haodlekhs-Mtzsi-0,3-Gala laxis ampicillin Allergy ALGY-Wheezi Verified 10/03/24 14:33 ng Penicillins Allergy Unknown Verified 10/03/24 14:33 shrimp Allergy Unknown Verified 10/03/24 14:33 metformin AdvReac ADR-Diarrhe Verified 10/03/24 14:33 a Review of Systems General: Reports: 10 or more systems reviewed and unremarkable except in HPI and below Const: Denies: fever(s), chills, fatigue or malaise Card: Denies: chest pain Resp: Denies: dyspnea GI: Denies: abdominal pain, nausea, vomiting or diarrhea : Denies: flank pain Musc: Reports: extremity pain and extremity swelling; Denies: joint pain Skin/Breast: Reports: erythema, sores and non-healing lesions; Denies: rash, skin pain, skin tenderness or new lesions Neuro: Denies: headache(s) PFS ED PFSH: Medical History Gingival disease Type 2 diabetes mellitus with hyperglycemia, with long-term current use of insulin Environmental and seasonal allergies Acute encephalopathy Morbid obesity Chronic sinusitis Allergic rhinitis Restless leg syndrome Obstructive sleep apnea Dyslipidemia HTN (hypertension) TIA (transient ischemic attack) Neuropathy Chronic pain Surgical History History of foot surgery Right foot 2020 History of coronary artery stent placement 2017 in [place], [place] History of carpal tunnel surgery History of tonsillectomy Family History Grandfather Cancer colon Sister Cancer ovary Other Hypertension Social History Smoking and tobacco/nicotine status: former use of tobacco/nicotine Quit status (tobacco/nicotine): has quit using Year quit tobacco: 2018 Alcohol intake: former Year of sobriety/quit date alcohol: 2014 Substance/Drug Use: unknown Adopted: No Caregiver/support person: No Lives independently: Yes Housing: House Marital status: Single Current occupational status: unemployed Do you think of yourself as: Straight/Heterosexual Current gender identity: Male Physical Exam Const: COMMON NORMALS: no acute distress, average body habitus, patient oriented x3, no limitations, healthy appearing, alert and well nourished HENMT: COMMON NORMALS: normocephalic and atraumatic HEAD & SCALP: normocephalic and atraumatic Neck/C-Spine: COMMON NORMALS: full ROM, no lymphadenopathy, supple and no meningeal signs Resp: COMMON NORMALS: normal respiratory effort, No use of accessory muscles and clear to auscultation bilaterally AUSCULTATION: clear to auscultation bilaterally Cardio: COMMON NORMALS: regular rate and regular rhythm RATE: regular rate RHYTHM: regular rhythm Extremity: COMMON NORMALS: full ROM and capillary refill normal Neuro: COMMON NORMALS: patient oriented x3, moves all extremities and no focal motor deficits SENSORIUM/ORIENTATION: Yes alert MENINGEAL SIGNS: Yes no meningeal signs Skin: COMMON NORMALS: turgor normal NARRATIVE SKIN EXAM: To the plantar right foot, appears to be callus formation and potential early stage ulcer with no active drainage or bleeding. Nontender to palpation, mild edema and erythema surrounding this. There is mild skin swelling in the left ankle as well. Chronic sensory changes distally. Full strength intact. GENERAL SKIN EXAM: turgor normal Course Vital Signs: Vital signs: Vital Signs Temperature 98.4 F 11/06/24 12:44 Pulse Rate 95 11/06/24 13:43 Respiratory Rate 14 11/06/24 13:43 Blood Pressure 121/95 11/06/24 13:43 Pulse Oximetry 98 11/06/24 13:43 Oxygen Delivery Me thod Room Air 11/06/24 12:44 MDM - Extremity (Nontraumatic) Medical Decision Making Patient is type II diabetic, presenting with wound to right foot. This has been an issue for the patient in the past, as he sees podiatry and last saw them on 10/03 for likely the same wound. He arrives with some swelling in the right foot and cellulitis, but there is no active drainage. Appears to be an early stage ulcer and callus. I spoke with timber deadener, Dr. Neil, who is familiar with the patient and kindly agrees to come consult the patient in the emergency department. He debrided it here and will see the patient next week in the office. Patient will be placed on broad-spectrum antibiotics, he is allergic to penicillin so we will do clinda and Cipro. Ceftriaxone was given here in the emergency department IM. Patient had labs drawn as well to support decision for outpatient therapy, his CRP and ESR were overall unremarkable, and white count was normal. Patient is dressed in nonadherent dressing and discharged at this time. Return precautions are given. Lab Data 11/06/24 13:42 Laboratory Results WBC 6.10 10^3/uL (3.29-11.43) 11/06/24 13:42 RBC 5.13 10^6/uL (3.85-5.65) 11/06/24 13:42 Hgb 16.00 g/dL (11.27-16.99) 11/06/24 13:42 Hct 43.8 % (37-53) 11/06/24 13:42 MCV 85.4 fl (82-101) 11/06/24 13:42 MCH 31.2 pg (27-33) 11/06/24 13:42 MCHC 36.5 g/dL (30-55) 11/06/24 13:42 RDW 11.9 % (12.1-15.1) L 11/06/24 13:42 Plt Count 180 10^3/cmm (157-399) 11/06/24 13:42 MPV 11.2 fL (7.4-10.4) H 11/06/24 13:42 Neut % (Auto) 59.2 % 11/06/24 13:42 Lymph % (Auto) 25.6 % 11/06/24 13:42 [place] % (Auto) 10.2 % 11/06/24 13:42 Eos % (Auto) 3.8 % 11/06/24 13:42 Baso % (Auto) 0.7 % 11/06/24 13:42 Neut # (Auto) 3.62 10^3/uL (1.8-7.7) 11/06/24 13:42 Lymph # (Auto) 1.6 10^3/uL (0.8-4.8) 11/06/24 13:42 [place] # (Auto) 0.6 10^3/uL (0.2-0.9) 11/06/24 13:42 Eos # (Auto) 0.2 10^3/uL (0.0-0.8) 11/06/24 13:42 Baso # (Auto) 0.0 10^3/uL (0.0-0.1) 11/06/24 13:42 Nucleated RBC % (auto) 0 % 11/06/24 13:42 Nucleated RBCs # 0.0 /100WBC 11/06/24 13:42 ESR 16 mm/hr (0-10) H 11/06/24 13:42 C-Reactive Protein 12.5 mg/L (0.0-4.9) H 11/06/24 13:42 No radiology studies performed this visit Discharge Plan Discharge Patient Disposition: Home Clinical Impression: Diabetic foot ulcer Condition: Stable Prescriptions: New clindamycin HCl [Cleocin HCl] 300 mg capsule 300 mg PO TID 10 Days Qty: 30 0RF ciprofloxacin HCl [Cipro] 500 mg tablet 500 mg PO BID 10 Days Qty: 20 0RF No Action (DME) diabetic shoes w/3 inserts See Rx Instructions .Route .MEDSUPPLY Qty: 1 0RF Rx Instructions: As directed (DME) Diabetic Shoes See Rx Instructions .Route .MEDSUPPLY Qty: 1 0RF Rx Instructions: As directed By Silvino Hanson Low Dose Aspirin 81 mg tablet,delayed release (DR/EC) 81 mg PO DAILY Qty: 90 0RF (DME) pen needle, diabetic 33 gauge x 5/32 needle See Rx Instructions .ROUTE .MEDSUPPLY Qty: 100 5RF Rx Instructions: 1 time day amlodipine 5 mg tablet 5 mg PO DAILY Qty: 30 2RF cetirizine [Zyrtec] 10 mg tablet 10 mg PO DAILY Qty: 30 2RF Jardiance 25 mg tablet 25 mg PO QAM Qty: 30 2RF ezetimibe 10 mg tablet 10 mg PO DAILY Qty: 30 2RF hydralazine 50 mg tablet 50 mg PO Q12H Qty: 60 2RF insulin glargine [Lantus Solostar U-100 Insulin] 100 unit/mL (3 mL) insulin pen 40 unit SUBCUT QAM Qty: 15 2RF chlorhexidine gluconate [Peridex] 0.12 % mouthwash 15 ml buccal BID Qty: 473 2RF metoprolol tartrate 25 mg tablet 25 mg PO BID Qty: 60 2RF lisinopril 40 mg tablet 40 mg PO DAILY Qty: 30 2RF pregabalin 200 mg capsule 200 mg PO Q12H Qty: 60 2RF trazodone 150 mg tablet 150 mg PO BEDTIME 30 Days Qty: 30 2RF (DME) diabetic shoes with 3 inserts See Rx Instructions .Route .MEDSUPPLY Qty: 1 0RF Rx Instructions: As directed to HOME Ozempic 1 mg/dose (4 mg/3 mL) pen injector 1 mg SUBCUT .on Thursday Qty: 3 0RF atorvastatin 20 mg tablet 20 mg PO BEDTIME fluticasone propionate 50 mcg/actuation spray,suspension 2 spray intranasal DAILY PRN (Reason: allergies) Discharge Orders: Discharge ED (Routine); Ordered 11/06/24 Ordered By: Bassam Moreno Referrals: Ann Rueda, [facility] [Primary Care Provider, Family Practice] Patient Instructions: Patient Portal & Anam Instructions Activity Restrictions/Additional Instructions: DFU discharge plan These instructions explain how to care for the right foot ulcer at home after debridement in the emergency department. They also review medicines, wound care, activity limits, and when to seek help. Antibiotics - Start ciprofloxacin 500 mg by mouth every 12 hours for 10 days, and clindamycin 300 mg by mouth every 8 hours for 10 days, beginning today, unless told otherwise on the prescription. - Take all doses on time and finish the full course, even if the foot looks better. - Common side effects to watch for: - Ciprofloxacin: upset stomach, sun sensitivity. Rare but serious: tendon pain or swelling (Achilles or other tendons), new tingling/numbness, severe headache, palpitations. Stop the medicine and seek care urgently if tendon pain or sudden swelling occurs. - Clindamycin: diarrhea or stomach cramps. If diarrhea is severe, bloody, or associated with fever, stop the medicine and seek care (risk of C. difficile). - Separate ciprofloxacin from calcium, iron, magnesium, zinc, or antacids by at least 2 hours before or 6 hours after, as these can reduce absorption. - If taking warfarin or other blood thinners, or if there is a history of heart rhythm problems, contact the clinic promptly to review potential interactions. Wound care at home (moist wound healing) - Keep the dressing clean, dry, and in place until the first dressing change is due. - Dressing changes: - Unless instructed otherwise, change the dressing once daily or when soaked. - Wash hands before and after every dressing change. - Gently rinse the ulcer with normal saline (or clean tap water if saline is not available). Do not use hydrogen peroxide, iodine, or alcohol on the wound, as these can damage healing tissue. - Pat the surrounding skin dry. Protect nearby healthy skin with a thin layer of petroleum jelly or barrier film if it tends to macerate. - Apply a moist, non-adherent dressing that manages drainage (for example, foam or hydrofiber pad) and secure it without excessive pressure. The goal is a moist (not wet) wound bed and a dry surrounding skin. - Inspect the foot at every change for new redness, swelling, warmth, drainage, odor, or spreading skin changes. Off-loading (keeping pressure off the ulcer) - Off-loading is critical for healing. Avoid putting weight on the right foot as instructed after today?s debridement. - Use the off-loading device provided (cast/walker/boot) at all times when upright, unless specifically told it is removable for sleep or bathing. Removable devices work less well if not worn consistently; make it ?as irremovable as possible? in daily routines. - Do not walk barefoot. Use a knee scooter, crutches, or wheelchair as recommended to limit pressure. - If a total contact cast or nonremovable knee-high walker is advised at follow-up, this is because these options reduce pressure most effectively and can speed healing. Activity and self-care - Elevate the right leg above heart level when sitting to reduce swelling. - Keep the dressing and device dry. If it gets wet, arrange a prompt dressing change. - Do not soak the foot or use hot tubs. Avoid heating pads on the foot (risk of grimm with neuropathy). - Wear a clean sock over the dressing if advised, without tight bands. - Avoid smoking/vaping and secondhand smoke; this slows healing. - Nutrition and glucose control: Aim for balanced meals with adequate protein and keep blood sugars in the target range set by the diabetes team; good glucose control supports healing and reduces infection risk. Blood sugar and medications - Check blood sugar as instructed. If high readings are frequent (for example, >180 mg/dL), contact the diabetes clinic for adjustment. Good control helps the ulcer heal. - Continue usual diabetes, blood pressure, and cholesterol medications unless told otherwise. Follow-up - A podiatry/wound clinic visit is scheduled for next week. Bring all off-loading devices and medication lists. - Regular, repeated debridement and close follow-up are important to promote healing; expect that the care team may adjust dressings and off-loading at each visit. Foot checks every day - Look at both feet daily (use a mirror or ask for help): check for new blisters, calluses, cuts, cracks, redness, warmth, or drainage. Early changes should prompt a call. When to seek urgent care - Fever (>=00.4?F/38?C), chills, or feeling very unwell. - Worsening pain, redness, warmth, swelling, or red streaks spreading from the wound. - Pus, foul odor, or rapidly increasing drainage from the ulcer. - Black or javed tissue, new numbness, cold/pale foot, or sudden color change. - Inability to bear any weight due to pain or swelling. - Severe diarrhea, especially with clindamycin; bloody stools; or signs of dehydration. - New tendon pain or swelling while on ciprofloxacin. - Any dressing or cast becomes soaked, falls off, or causes skin breakdown. - Blood sugars persistently >300 mg/dL or signs of low blood sugar not responding to usual treatment. Contact information - For questions or concerns during business hours: [Clinic phone]. - After hours: [On-call number] or go to the nearest emergency department if severe symptoms occur. Summary of why these steps matter - Sharp debridement plus moist wound care, strict off-loading, infection control, and attention to circulation and glucose are the foundation of healing diabetic foot ulcers. Following the plan above until the follow-up visit supports healing and lowers the risk of complications. Print Language: [place] Coding Level of Care Code ED Operations Clerk for Luis Corrigan
[2024-11-06 13:43] VITALS: BP 121/95; PULSE 95; RESP 14; O2SAT 98
[2024-11-06] MEDS: cefTRIAXone 1,000 MG in water for injection-sterile 2.1 ML 1 MG IM (13:47)
[2024-11-06 13:49] LABS: Hematocrit 43.8 % (37-53); Hemoglobin 16.00 g/dL (11.27-16.99); Mean Corpuscular HGB Conc 36.5 g/dL (30-55); Mean Corpuscular Hemoglobin 31.2 pg (27-33); Mean Corpuscular Volume 85.4 fl (82-101); Nucleated Red Blood Cells % 0 %; Platelet Count 180 10^3/cmm (157-399); Red Blood Count 5.13 10^6/uL (3.85-5.65); White Blood Count 6.10 10^3/uL (3.29-11.43)
[2024-11-06 14:35] VITALS: BP 145/99; PULSE 93; TEMP 36.8; O2SAT 98
== END 2024-11-06 14:38 | disposition home or self-care (01) ==
PROVIDERS: Emergency Provider Physician Assistant; PCP Nurse Practitioner
DX: E11.621 Type 2 diabetes mellitus with foot ulcer (principal); L97.519 Non-pressure chronic ulcer of other part of right foot with unspecified severity; G47.33 Obstructive sleep apnea (adult) (pediatric); I10 Essential (primary) hypertension; E11.40 Type 2 diabetes mellitus with diabetic neuropathy, unspecified; Z79.899 Other long term (current) drug therapy; Z79.85 Long-term (current) use of injectable non-insulin antidiabetic drugs; Z79.4 Long term (current) use of insulin; Z79.84 Long term (current) use of oral hypoglycemic drugs; Z79.82 Long term (current) use of aspirin; Z88.8 Allergy status to other drugs, medicaments and biological substances; Z88.0 Allergy status to penicillin; Z86.73 Personal history of transient ischemic attack (TIA), and cerebral infarction without residual deficits; Z87.891 Personal history of nicotine dependence
CPT/HCPCS: 36415; 85025; 85651; 86140; 99284; J0696

== ENCOUNTER → 2024-11-23 09:28 | Outpatient (BNVA) | payer MEDICAID, SELFPAY | PROVIDERS: PCP Nurse Practitioner; Visit Provider Nurse Practitioner | DX: Z12.5 Encounter for screening for malignant neoplasm of prostate (principal); E11.9 Type 2 diabetes mellitus without complications | CPT/HCPCS: 80053; 80061; 83036; G0103 ==

== ENCOUNTER 2024-12-15 15:55 | Outpatient (CLI) | payer MEDICAID, SELFPAY ==
--- NOTE | 2024-12-15 15:59 | XR_ITS ---
WS: [id number] XR foot RT min 3V* 10641 REASON FOR EXAM: E11.621 - Type 2 diabetes mellitus with foot ulcer FINDINGS: No acute fracture or focal bone lesion. Presumed old healed fracture of the fifth proximal phalange. No erosion or periosteal reaction. Mild hallux valgus of the first MTP joint. Subluxations of the second through the fifth toes at the MTP joints and DIP joints. The remainder of the joint spaces of the forefoot, midfoot, and hindfoot are intact and relatively well preserved. XR/XR foot RT min 3V* [id number] IMPRESSION: No acute bone or joint abnormality. No findings of osteomyelitis.
== END 2024-12-15 15:56 | disposition home or self-care (01) ==
LOC: RAD 15:57
PROVIDERS: PCP Nurse Practitioner; Visit Provider Thoracic Surgery (Cardiothoracic Vascular Surgery)
DX: E11.621 Type 2 diabetes mellitus with foot ulcer (principal); L97.509 Non-pressure chronic ulcer of other part of unspecified foot with unspecified severity
CPT/HCPCS: 73630

== ENCOUNTER → 2025-02-07 11:30 | Outpatient (BNVA) | payer MEDICAID, SELFPAY | PROVIDERS: PCP Nurse Practitioner; Visit Provider Nurse Practitioner | DX: E78.5 Hyperlipidemia, unspecified (principal); Z79.4 Long term (current) use of insulin; E55.9 Vitamin D deficiency, unspecified | CPT/HCPCS: 80053; 81000; 82043; 82306; 83036; 85025 ==